=== PATIENT | male | born 1960 | race Caucasian/White ===

== ENCOUNTER 2020-11-03 19:02 | Inpatient (IN) | payer MEDICARE ==
[~2020-11-03] VITALS: Ht 180.3 cm; Wt 113.4 kg
[~2020-11-03 19:02] MED LIST: ASCORBIC ACID500 MG PO; DEPAKENE 2250 MG/5 M PO; DILANTIN 12525 MG/ML; DILANTIN100 MG PO; DULCOLAX STOOL100 MG PO; FUROSEMIDE20 MG PO; GABAPENTIN100 MG PO; KEPPRA500 MG PO; KEPPRA750 MG PO; KLOR-CON M2020 MEQ PO; LAMICTAL ODT50 MG PO; MELATONIN 3 MG1 TAB PO; MUCINEX600 MG PO; NAPROSYN500 MG PO; NORVASC5 MG PO; PRAVASTATIN SOD10 MG PO; PROTONIX40 MG PO; SYNTHROID50 MCG PO; VIC-FORTE CAPSUL1 MG PO; VITAMIN B-1100 M1 PO; VITAMIN B-12500 MCG PO; VITAMIN D-32000 UNI2 PO; VITAMIN E200 UNI1 PO; ZOLOFT50 MG PO
[2020-11-03 19:52] LABS: BASOPHILS 0.2 % (0-2); EOSINOPHILS 3.9 % (0-7); HEMATOCRIT 35.7 % (42.0-54.0); IMMATURE GRANULOCYTES 0.1 % (0-5); LYMPHOCYTE ABS# 4.55 10x3/uL (1.32-3.57); LYMPHOCYTES 53.5 % (15-50); MCH 31.7 pg (26.0-34.0); MCHC 33.6 g/dL (31.0-37.0); MCV 94.2 fL (80.0-100.0); MEAN PLATELET VOLUME 8.4 fL (7.4-10.4); MONOCYTES 6.7 % (2-11); NEUTROPHIL ABS# 3.03 10x3/uL (1.78-5.38); NEUTROPHILS 35.6 % (40-80); RBC 3.79 10x6/uL (4.20-6.10); RDW 13.1 % (11.5-14.5); WBC 8.5 10x3/uL (4.8-10.8)
[2020-11-03 19:58] LABS: APTT 27.9 SECONDS (22.8-39.4); INR 1.23 (0.85-1.17); PROTIME 14.3 SECONDS (11.6-15.0)
[2020-11-03 19:59] LABS: PLATELET COUNT 188 10x3/uL (130-400)
[2020-11-03 20:01] LABS: CALC OSMOLALITY 266 mosm/kg (275-300); CALCIUM 8.5 mg/dL (8.5-10.1); CARBON DIOXIDE 27.2 mmol/L (21.0-32.0); CHLORIDE - SERUM 98 mmol/L (98-107); CREATININE - SERUM 0.8 mg/dL (0.6-1.3); POTASSIUM - SERUM 3.3 mmol/L (3.5-5.1); SODIUM 133 mmol/L (136-145); UREA NITROGEN 7 mg/dL (7-18); eGFR NON AFRICAN AMERICAN > 90 mL/min (90-120)
[2020-11-03 20:02] LABS: GLUCOSE 158 mg/dL (74-106)
[2020-11-03 20:17] LABS: ALBUMIN 3.4 g/dL (3.4-5.0); ALKALINE PHOSPHATASE 190 U/L (30-120); ALT (SGPT) 18 U/L (10-68); BILIRUBIN - TOTAL 0.27 mg/dL (0.2-1.3); CREATINE KINASE 64 UL (21-232); MAGNESIUM - SERUM 1.7 mg/dL (1.8-2.4); THYROID STIMULATING HORMONE 2.85 uIU/mL (0.36-3.74)
[2020-11-03 20:20] LABS: TROPONIN-I < 0.017 ng/mL (0.000-0.060)
[2020-11-03 20:52] LABS: BILIRUBIN NEGATIVE (NEGATIVE); KETONE NEGATIVE (NEGATIVE); NITRITE NEGATIVE (NEGATIVE); UROBILINOGEN NORMAL mg/dL (< 2)
[2020-11-03 20:59] LABS: UDS - AMPHET NEGATIVE QUAL (NEGATIVE); UDS - BARB NEGATIVE QUAL (NEGATIVE); UDS - BENZO NEGATIVE QUAL (NEGATIVE); UDS - COCAINE NEGATIVE QUAL (NEGATIVE); UDS - OPIATE NEGATIVE QUAL (NEGATIVE); UDS - PCP NEGATIVE QUAL (NEGATIVE); UDS - THC NEGATIVE QUAL (NEGATIVE)
[2020-11-03 23:05] LABS: SARS-CoV-2 ANTIGEN NEGATIVE- SARS-COV-2 (NEGATIVE)
--- NOTE | 2020-11-03 23:52 | NUR ---
PT TO ROOM FROM ER, IMMEDIATLY STUMBLING AROUND THE ROOM WITH GARBLED SPEECH. ALERT TO SELF ONLY, STATES HE IS AT HOME. ASKED FOR A "SPIT CUP" REDIRECTED TO BED. DAVONTE ALARM IN PLACE. EDUCATED USE OF CALL LIGHT FOR ASSITANCE. PT UNABLE TO VERBALIZE UNDERSTANDING. FALL PRECAUTIONS IN PLACE.
[2020-11-03 23:55] VITALS: BP 123/64
[2020-11-04 03:19] VITALS: BP 123/64
[2020-11-04 04:32] VITALS: BP 107/77
--- NOTE | 2020-11-04 06:25 | NUR ---
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 STATES PT IS USUALLY A&O AND WAS DX WITH COVID-19 IN MARCH.
--- NOTE | 2020-11-04 07:15 | NUR ---
RECEIVE SHIFT REPORT. RESTING IN BED WITH EYES CLOSED. VIDEO MONITOR ON NURSE DESK. NO SIGNS OF DISTRESS PRESENT AT THIS TIME. WILL CONTINUE POC AND SAFETY PRECAUTIONS.
[2020-11-04 07:33] VITALS: BP 124/70
[2020-11-04 11:43] VITALS: BP 120/67
--- NOTE | 2020-11-04 17:34 | NUR ---
PATIENT YELLING " I WANT A DIP" AND GETTING UP. FALL RISK. TRY TO REORIENT PATIENT AND PUT HIM BACK IN BED. CLIMBS OUT REPEATEDLY. HALDOL GIVEN IV. PATIENT BECAME AGGRESSIVE. WILL CONTINUE SAFETY PRECAUTIONS.
--- NOTE | 2020-11-04 19:00 | NUR ---
REPORT RECEIVED, PT CARE ASSUMED. PT IN ENCLOSURE BED, WATER PROVIDED. NO S/S OF DISTRESS. REMAINS CONFUSED BUT PLESENT AT THIS TIME. DENIES NEEDS. WILL CPOC.
[2020-11-04 20:49] VITALS: BP 121/75
--- NOTE | 2020-11-05 00:15 | NUR ---
PTS SISTER IN LAW CALLED AND GIVEN UPDATE.
[2020-11-05 00:58] VITALS: BP 128/65
[2020-11-05 05:33] VITALS: BP 115/71
[2020-11-05 05:46] LABS: BASOPHILS 0.3 % (0-2); EOSINOPHILS 6.1 % (0-7); HEMATOCRIT 37.9 % (42.0-54.0); HEMOGLOBIN 12.4 g/dL (13.5-17.5); IMMATURE GRANULOCYTES 0.1 % (0-5); LYMPHOCYTE ABS# 4.71 10x3/uL (1.32-3.57); LYMPHOCYTES 62.1 % (15-50); MCH 31.2 pg (26.0-34.0); MCHC 32.7 g/dL (31.0-37.0); MCV 95.2 fL (80.0-100.0); MEAN PLATELET VOLUME 8.5 fL (7.4-10.4); MONOCYTES 7.1 % (2-11); NEUTROPHIL ABS# 1.85 10x3/uL (1.78-5.38); NEUTROPHILS 24.3 % (40-80); PLATELET COUNT 219 10x3/uL (130-400); RBC 3.98 10x6/uL (4.20-6.10); RDW 13.4 % (11.5-14.5); WBC 7.6 10x3/uL (4.8-10.8)
[2020-11-05 06:03] LABS: ALBUMIN 3.5 g/dL (3.4-5.0); ALKALINE PHOSPHATASE 175 U/L (30-120); ALT (SGPT) 16 U/L (10-68); BILIRUBIN - TOTAL 0.25 mg/dL (0.2-1.3); CALCIUM 8.5 mg/dL (8.5-10.1); CARBON DIOXIDE 28.1 mmol/L (21.0-32.0); CHLORIDE - SERUM 104 mmol/L (98-107); CREATININE - SERUM 0.7 mg/dL (0.6-1.3); POTASSIUM - SERUM 3.4 mmol/L (3.5-5.1); PROTEIN - SERUM 6.9 g/dL (6.4-8.2); SODIUM 138 mmol/L (136-145); UREA NITROGEN 7 mg/dL (7-18); eGFR NON AFRICAN AMERICAN > 90 mL/min (90-120)
[2020-11-05 06:04] LABS: CALC OSMOLALITY 273 mosm/kg (275-300); GLUCOSE 107 mg/dL (74-106)
--- NOTE | 2020-11-05 07:20 | NUR ---
RECIEVE REPORT. RESTING IN BED WITH EYES CLOSED. NO SIGNS OF DISTRESS. RESPIRATIONS EVEN AND REGULAR. CONTINUE PLAN OF CARE AND SAFEY PRECAUTIONS.
[2020-11-05 07:51] VITALS: BP 113/79
[2020-11-05 11:30] VITALS: BP 122/88
[2020-11-05 16:00] VITALS: BP 104/67
[2020-11-05 20:41] VITALS: BP 143/68
[2020-11-06 06:21] VITALS: BP 136/74
[2020-11-06 07:52] VITALS: BP 137/88
--- NOTE | 2020-11-06 08:00 | NUR ---
PT RECEIVED AWAKE AND ALERT ALBEIT CONFUSED. HE IS IN DAVONTE BED. ASSISTED UP TO CHAIR AND HELPED EAT BREAKFAST. MEDS GIVEN. CHAIR ALARM IN PLACE. SOME COMPLAINTS OF PAIN TO LEFT ABDOMEN.
[2020-11-06 13:10] VITALS: BP 126/78
--- NOTE | 2020-11-06 14:04 | NUR ---
PT YELLING WANTING TO GO TO BATHROOM. IN ROOM TO ASSIST AND HE IS GETTING FRUSTRATED. WHILE TRYING TO HOLD ON TO HIM HE SWUNG BACK AT ME AND COUGHT ME IN GUT WITH ELBOW. HELD ARMS AND PLACED BACK IN DAVONTE BED. CALL PLACED TO DR TAN AND ORDERS FOR IM HALDOL GIVEN.
[2020-11-06 16:12] VITALS: BP 124/76
[2020-11-06 19:01] VITALS: BP 104/61
--- NOTE | 2020-11-06 20:20 | NUR ---
REPORT RECEIVED, WILL CONT POC. PT ALERT AND CONFUSED, DELUSIONS & HALLUCINATIONS NOTED. PT COMBATIVE WHEN TRYING TO ASSIST WITH HS MEDS. NO S/S OF DISTRESS OBSERVED. RR EVEN & UNLABORED ON RA. BED LOCKED AND LOWERED, CL IN REACH. ASSESSMENT COMPLETED AT THIS TIME. WILL CONT TO MONITOR.
[2020-11-06 22:16] VITALS: BP 128/84
[2020-11-07 05:11] VITALS: BP 139/81
[2020-11-07 07:27] VITALS: BP 128/72
[2020-11-07 11:30] VITALS: BP 118/64
[2020-11-07 16:44] VITALS: BP 99/69
--- NOTE | 2020-11-07 20:20 | NUR ---
REPORT RECEIVED, WILL CONT POC. PT A&CONFUSED, UP IN BED. DELUSIONS AND HALLUCINATIONS NOTED. NO S/S OF DISTRESS OBSERVED. RR EVEN & UNLABORED ON RA. PT DENIES NEEDS AT THIS TIME. BED LOCKED AND LOWERED, CL IN REACH. ASSESSMENT COMPLETED AT THIS TIME. WILL CONT TO MONITOR.
[2020-11-07 23:11] VITALS: BP 125/72
[2020-11-08 05:24] VITALS: BP 122/74
[2020-11-08 08:00] VITALS: BP 132/57
[2020-11-08 12:00] VITALS: BP 129/62
[2020-11-08 15:00] VITALS: BP 129/58
--- NOTE | 2020-11-08 20:15 | NUR ---
REPORT RECEIVED, WILL CONT POC. PT A&CONFUSED WITH HALLUCINATIONS AND DELUSIONS. PT COMBATIVE WITH THIS NURSE TONIGHT. NO DISTRESS OBSERVED. RR EVEN & UNLABORED ON RA. DENIES NEEDS AT THIS TIME. BED LOCKED AND LOWERED. VIDEO MONITOR ON AT NURSES STATION. ASSESSMENT COMPLETED AT THIS TIME. WILL CONT TO MONITOR.
[2020-11-08 22:11] VITALS: BP 112/80
[2020-11-09 04:59] VITALS: BP 94/58
--- NOTE | 2020-11-09 07:31 | NUR ---
AM ROUNDING DONE WITH PATIENT IN DAVONTE BED IN DROPLET ISOLATION FOR COVID PUI. ON EP, K+ IS 3.4, WILL COVER PER PROTOCOL. ON ROOM AIR, NO IV ACCESS IS SEEN. PATIENT APPEARS TO BE SLEEPING, CHEST RISE AND FALL EVENELY.
[2020-11-09 08:42] VITALS: BP 111/78
[2020-11-09 11:18] VITALS: BP 115/71
--- NOTE | 2020-11-09 11:23 | NUR ---
CALLED DR. TAN OFFICE TO SEE WHO WAS CNC MANUFACTURING ENGINEER AND IF PCR IS NEEDED. AFTER 8 MIN. ON HOLD I WAS TOLD DR TAN WAS CNC MANUFACTURING ENGINEER. I ASKED THE ANSWERING SERVICE TO HAVE CALL ME.
--- NOTE | 2020-11-09 11:48 | NUR ---
CALL BACK FROM DR TAN TO SEE ABOUT PCR. I ASKED VILMA WITH CM TO CALL THE FACILITY TO SEE IF PCR NEEDS TO BE DONE. SHE WELL AND LET US KNOW.
--- NOTE | 2020-11-09 12:04 | NUR ---
MECHANICS HANDYMAN CALLED AFTER SPEAKING WITH [facility], PT DOES NOT HAVE TO HAVE A PCR COVID TEST BUT MUST BE OUT OF DAVONTE BED FOR 24 HOURS.
--- NOTE | 2020-11-09 13:09 | MORECARE ---
CASE MANAGEMENT DISCHARGE SUMMARY PATIENT: YUDITH LÓPEZ UNIT: [id number] ADM DATE: 11/03/20 AGE: 60 : 60 SEX: M ROOM/BED: D.2136 AUTHOR: LIZZ ROJAS PHYSICIAN: REFERRING PHYSICIAN: MAGNO BRANDON MD DATE OF SERVICE: 11/09/20 Discharge Plan Patient Name: YUDITH LÓPEZ [facility] [facility] 1960 Planned Disposition: Nursing Facility [facility] Cert Anticipated Discharge Date: Discharge Date: Expected LOS: Initial Reviewer: [email or web address] Initial Review Date: 11/09/2020 Generated: 11/09/20 2:09 pm External Providers External Provider: [facility] Next Contact Date: Service Request Date: Service Type: Resolution: Reviewer: Comments: Patient Name: YUDITH LÓPEZ Page [phone] at 1309 All edits/amendments must be made on the electronic document DICTATION DATE: 11/09/20 1309 NURSE ADVOCATE: ANGELY 11/09/20 1309 RPT#: [id number] MD DATE: STATUS: ADM IN [facility] [address] [place] [address] END OF REPORT
--- NOTE | 2020-11-09 13:16 | MORECARE ---
CASE MANAGEMENT DISCHARGE SUMMARY PATIENT: YUDITH LÓPEZ UNIT: [id number] ADM DATE: 11/03/20 AGE: 60 : 60 SEX: M ROOM/BED: D.2136 AUTHOR: BOB,DOC PHYSICIAN: REFERRING PHYSICIAN: MAGNO BRANDON MD DATE OF SERVICE: 11/09/20 Discharge Plan Patient Name: YUDITH LÓPEZ Facility: [facility]:[place] : 1960 Planned Disposition: Nursing Facility [facility] Cert Anticipated Discharge Date: Discharge Date: Expected LOS: Initial Reviewer: [email or web address] Initial Review Date: 11/09/2020 Generated: 11/09/20 2:16 pm Comments DCP- Discharge Planning Updated by [id number]: Winnie Muñoz on 11/09/20 12:[address] Patient Name: YUDITH LÓPEZ Admission Status: ER Accout number: [id number] Admission Date: 11-03-2020 : 1960 Admission Diagnosis:ALTERED MENTAL STATUS, UNSPECIFIED Attending: GEOFFREY Current LOS: 6 Anticipated DC Date: Planned Disposition: Nursing Facility [facility] Cert Primary Insurance: MEDICARE A & B Discharge Planning Comments: CM called patient's Lety CARRILLO to discuss discharge planning/needs. No answer. He lives at [facility]. I called and spoke with Bibi there and they will be anticipating his return. States they do not need a PCR, negative antigen is fine. States they test there twice a week. States he will need to be out of rikki bed for 24 hours prior to returning. I have called his primary nurse, Arpita, and informed her. CM will continue to follow and assist with discharge planning/needs. Piping Designer: Winnie Muñoz DCPIA - Discharge Planning Initial Assessment Updated by [id number]: Winnie Muñoz on 11/09/20 1:11 pm * Pharmacy [facility] * Preadmission Environment [facility] * Facility Name [facility] * Additional services required to return to the preadmission environment? No * Can the patient safely return to the preadmission environment? Yes Last DP export: 11/09/20 12:09 p Patient Name: YUDITH LÓPEZ Page [phone] at 1316 All edits/amendments must be made on the electronic document DICTATION DATE: 11/09/20 131 REPAIR ARMATURE WINDER: ANGELY 11/09/20 1316 RPT#: [id number] DC DATE: STATUS: ADM IN [facility] [address] [place] [address] END OF REPORT
[2020-11-09 15:51] VITALS: BP 112/76
--- NOTE | 2020-11-09 19:35 | NUR ---
REPORT RECEIVED, WILL CONT POC. A&C, LAYING IN BED. NO S/S OF DISTRESS OBSERVED. RR EVEN & UNLABORED ON RA. PT DENIES NEEDS AT THIS TIME. BED LOCKED AND LOWERED, CL IN REACH. ASSESSMENT COMPLETED AT THIS TIME. WILL CONT TO MONITOR.
[2020-11-09 20:14] VITALS: BP 125/68
[2020-11-10 05:17] VITALS: BP 120/70
[2020-11-10 06:26] LABS: HEMATOCRIT 39.9 % (42.0-54.0); HEMOGLOBIN 12.9 g/dL (13.5-17.5); LYMPHOCYTE ABS# 5.53 10x3/uL (1.32-3.57); MCH 31.5 pg (26.0-34.0); MCHC 32.3 g/dL (31.0-37.0); MCV 97.3 fL (80.0-100.0); MEAN PLATELET VOLUME 8.5 fL (7.4-10.4); NEUTROPHIL ABS# 3.14 10x3/uL (1.78-5.38); RDW 13.6 % (11.5-14.5); WBC 9.6 10x3/uL (4.8-10.8)
[2020-11-10 06:28] LABS: PLATELET COUNT 276 10x3/uL (130-400)
[2020-11-10 06:55] LABS: ALBUMIN 3.7 g/dL (3.4-5.0); ALKALINE PHOSPHATASE 164 U/L (30-120); ALT (SGPT) 21 U/L (10-68); BILIRUBIN - TOTAL 0.32 mg/dL (0.2-1.3); CALC OSMOLALITY 287 mosm/kg (275-300); CALCIUM 8.4 mg/dL (8.5-10.1); CARBON DIOXIDE 28.2 mmol/L (21.0-32.0); CHLORIDE - SERUM 107 mmol/L (98-107); CREATININE - SERUM 0.9 mg/dL (0.6-1.3); GLUCOSE 94 mg/dL (74-106); POTASSIUM - SERUM 3.7 mmol/L (3.5-5.1); PROTEIN - SERUM 6.8 g/dL (6.4-8.2); SODIUM 144 mmol/L (136-145); UREA NITROGEN 14 mg/dL (7-18); VALPROIC ACID (DEPAKOTE) 27.5 ug/mL (50.0-100.0); eGFR NON AFRICAN AMERICAN > 90 mL/min (90-120)
[2020-11-10 06:58] LABS: EOSINOPHILS 6 % (0-7); LYMPHOCYTES 44 % (15-50); NEUTROPHILS 50 % (40-80); PLATELET ESTIMATE NORMAL
--- NOTE | 2020-11-10 07:10 | NUR ---
LYING IN BED WITH EYES CLOSED, RESPIRATIONS SLOW/DEEP/EVEN, MAKING SNORING NOISES, ROUSES WITH VERBAL STIMULUS, T/R SELF AD MARION, INCONT OF B/B WITH USE OF INCONT PADS AND ADULT PULL UPS, PERICARE PROVIDED WITH DAILY BATH AND PRN, DENIES PAIN/OTHER DISCOMFORT AT THIS TIME, CALL LIGHT/PHONE/WATER WITHIN REACH, NO S/S OF ACUTE DISTRESS OBSERVED.
[2020-11-10 07:25] VITALS: BP 134/64
--- NOTE | 2020-11-10 08:00 | NUR ---
PT SITTING ON SIDE OF BED CONSUMING AM MEAL, BEHAVIOR APPROPRIATE AND NO ISSUES OBSERVED/REPORTED BY STAFF
[2020-11-10 08:09] VITALS: Ht 180.3 cm; Wt 113.4 kg
--- NOTE | 2020-11-10 10:00 | NUR ---
UP TO CHAIR AT BEDSIDE, AWAKE/ALERT, NO YELLING OUT OR ACTING OUT, ATTEMPTING TO CONVERSE WITH STAFF WHEN IN THE ROOM, VIDEO IN PLACE AND OPERATIONAL FOR SAFETY.
--- NOTE | 2020-11-10 12:00 | NUR ---
CONSUMING NOON MEAL WITH ASSIST FROM STAFF WHILE SITTING UP IN CHAIR AT BEDSIDE, NO ISSUES OBSERVED/REPORTED. VIDEO CONT TO BE USED TO ADDITIONAL SAFETY
--- NOTE | 2020-11-10 14:00 | NUR ---
CONT SITTING UP IN CHAIR AT BEDSIDE WATCHING WESTERNS ON TV, NO YELLING OUT OR ACTING OUT OBSERVED/REPORTED, VIDEO CONT IN PLACE FOR SAFETY.
[2020-11-10 15:28] VITALS: BP 108/72
--- NOTE | 2020-11-10 16:00 | NUR ---
DISCHARGE ORDERS RECEIVED, PT CONT UP IN CHAIR AT BEDSIDE, NO YELLING OUT/ACTING OUT, VIDEO CONT IN PLACE FOR SAFETY.
[2020-11-10] MEDS ORDERED: CHRONULAC30 ML PO (16:22)
--- NOTE | 2020-11-10 16:43 | NUR ---
CALLED REPORT TO JAYDE ALLEN AT [facility]
--- NOTE | 2020-11-10 16:56 | NUR ---
I CALLED TAIWO AT [facility] FOR TRANSPORT. SHE STATES THAT WITH [facility] THEY HAVE TO HAVE A FORM FAXED TO THEM AND THEN FAXED BACK. SHE IS GOING TO CALL THEM AND ASK FOR THE FORM. I RELAY THIS INFO TO NIDA HOUSE SUPERVISIOR.
--- NOTE | 2020-11-10 18:08 | NUR ---
DISCHARGED TO [facility] VIA STRETCHER ACCOMPANIED BY EMS ATTENDANTS AFTER PROVIDING WRITTEN/VERBAL DISCHARGE INSTRUCTIONS/EDUCATION TO WHICH PT UNABLE TO INDICATE UNDERSTANDING. NO S/S OF ACUTE DISTRESS OBSERVED.
--- NOTE | 2020-11-14 01:38 | MORECARE ---
CASE MANAGEMENT DISCHARGE SUMMARY PATIENT: YUDITH LÓPEZ UNIT: [id number] ADM DATE: 11/03/20 AGE: 60 : 60 SEX: M ROOM/BED: D.9720 AUTHOR: BOB,DOC PHYSICIAN: REFERRING PHYSICIAN: MAGNO BRANDON MD DATE OF SERVICE: 11/14/20 Discharge Plan Patient Name: YUDITH LÓPEZ Facility: [facility]:[place] : 1960 Planned Disposition: Nursing Facility [facility] Cert Anticipated Discharge Date: Discharge Date: 11/10/2020 Expected LOS: Initial Reviewer: [id number] Initial Review Date: 11/09/2020 Generated: 11/14/20 2:38 am Comments DCP- Discharge Planning Updated by [email or web address]: Radha Don on 11/14/20 12:[address] CM notified [facility] of discharge and faxed updates. D/ C IMM completed Ambulance transfer back DCP- Discharge Planning Updated by [email or web address]: Winnie Muñoz on 11/09/20 12:[address] Patient Name: YUDITH LÓPEZ Admission Status: ER Accout number: [id number] Admission Date: 11-03-2020 : 1960 Admission Diagnosis:ALTERED MENTAL STATUS, UNSPECIFIED Attending: GEOFFREY Current LOS: 6 Anticipated DC Date: Planned Disposition: Nursing Facility [facility] Cert Primary Insurance: MEDICARE A & B Discharge Planning Comments: CM called patient's GERARDO Lety to discuss discharge planning/needs. No answer. He lives at [facility]. I called and spoke with Bibi there and they will be anticipating his return. States they do not need a PCR, negative antigen is fine. States they test there twice a week. States he will need to be out of rikki bed for 24 hours prior to returning. I have called his primary nurse, Arpita, and informed her. CM will continue to follow and assist with discharge planning/needs. Facilitator: Winnie Muñoz DCPIA - Discharge Planning Initial Assessment Updated by [email or web address]: Winnie Muñoz on 11/09/20 1:11 pm * Pharmacy [facility] * Preadmission Environment Skilled Nursing Half-Way * Facility Name [facility] * Additional services required to return to the preadmission environment? No * Can the patient safely return to the preadmission environment? Yes Coverage Notice Reviewer: [id number] Amber Don Notice Issued Date-Time: 11/10/2020 17:15 Notice Type: IM Discharge Notice Notice Delivered To: Patient Relationship to Patient: Snow Removal/Plowing Name: Delivery Method: HAND - Hand Delivered Kelsey Days: Prior Verbal Notification: Recipient Understood Notice: Yes Recipient Signature: Med Rec Note Co-signed by Attending: Coverage Notice Comment: Last DP export: 11/09/20 12:16 p Patient Name: YUDITH LÓPEZ Page [phone] at 0138 All edits/amendments must be made on the electronic document DICTATION DATE: 11/14/20137 ARBORIST REPRESENTATIVE: ANGELY 11/14/20137 RPT#: [id number] DC DATE:11/10/20 STATUS: DIS IN [facility] [address] [place] [address] END OF REPORT
[2020-11-16] MEDS ORDERED: CHRONULAC30 ML PO (05:32)
== END 2020-11-10 19:14 | DRG 433 ==
LOC: D.ER 19:02 → D.M2 21:41 → D.EDHOLD 21:41 → D.M2 22:55
PROVIDERS: Family Medicine; Legal Medicine; ADMIT Emergency Medicine; ATTEND Emergency Medicine
DX: K70.10 Alcoholic hepatitis without ascites (principal); E87.1 Hypo-osmolality and hyponatremia; E88.49 Other mitochondrial metabolism disorders; K72.90 Hepatic failure, unspecified without coma; E87.6 Hypokalemia; I10 Essential (primary) hypertension; F31.9 Bipolar disorder, unspecified; F10.21 Alcohol dependence, in remission; Z86.73 Personal history of transient ischemic attack (TIA), and cerebral infarction without residual deficits; Z72.0 Tobacco use

== ENCOUNTER 2020-11-16 11:36 | Inpatient (IN) | payer MEDICARE ==
[~2020-11-16] VITALS: Ht 180.3 cm; Wt 79.4 kg
[~2020-11-16 11:36] MED LIST changes: +CHRONULAC30 ML PO
[2020-11-16 12:26] LABS: HEMOGLOBIN 11.7 g/dL (13.5-17.5); LYMPHOCYTES 43.9 % (15-50); MCH 31.5 pg (26.0-34.0); MCHC 32.5 g/dL (31.0-37.0); MEAN PLATELET VOLUME 8.8 fL (7.4-10.4); NEUTROPHILS 52.4 % (40-80); RBC 3.71 10x6/uL (4.20-6.10); RDW 13.3 % (11.5-14.5); WBC 8.9 10x3/uL (4.8-10.8)
[2020-11-16 12:27] LABS: PLATELET COUNT 179 10x3/uL (130-400)
[2020-11-16 12:48] LABS: ALBUMIN 3.6 g/dL (3.4-5.0); ALKALINE PHOSPHATASE 178 U/L (30-120); ALT (SGPT) 21 U/L (10-68); BILIRUBIN - TOTAL 0.45 mg/dL (0.2-1.3); CALC OSMOLALITY 283 mosm/kg (275-300); CALCIUM 8.1 mg/dL (8.5-10.1); CARBON DIOXIDE 26.6 mmol/L (21.0-32.0); CHLORIDE - SERUM 106 mmol/L (98-107); CREATININE - SERUM 0.8 mg/dL (0.6-1.3); GLUCOSE 102 mg/dL (74-106); MAGNESIUM - SERUM 1.8 mg/dL (1.8-2.4); PHENYTOIN (DILANTIN) 29.2 ug/mL (10.0-20.0); POTASSIUM - SERUM 3.4 mmol/L (3.5-5.1); PROTEIN - SERUM 6.6 g/dL (6.4-8.2); SODIUM 142 mmol/L (136-145); THYROID STIMULATING HORMONE 3.14 uIU/mL (0.36-3.74); UREA NITROGEN 14 mg/dL (7-18); VALPROIC ACID (DEPAKOTE) 35.2 ug/mL (50.0-100.0); eGFR NON AFRICAN AMERICAN > 90 mL/min (90-120)
[2020-11-16 13:10] LABS: BILIRUBIN NEGATIVE (NEGATIVE); KETONE SMALL mg/dL (NEGATIVE); NITRITE NEGATIVE (NEGATIVE); UROBILINOGEN NORMAL mg/dL (< 2)
[2020-11-16 13:29] LABS: SQUAMOUS EPITHELIAL RARE HPF (0-4); WHITE CELLS - URINE 25-50 HPF (0-1)
[2020-11-16 13:30] LABS: BACTERIA MODERATE HPF (NONE SEEN)
--- NOTE | 2020-11-16 15:02 | NUR ---
patient awake and alert, confused at times. patient reminded several times not to get up out of bed. patient assisted to the chair and back to bed to try and keep comfortable. patient has taken off all leads and bp cuff. call mackay in reach, side rails up x 2, bed in low position.
--- NOTE | 2020-11-16 18:42 | NUR ---
PATIENT FOUND UP IN THE HALLWAY, DESPITE CALL BLEVINS BEING CLOSE AND BED IN LOW POSITION AND SIDE RAILS UP X 2 AND REMINDING PATIENT CONSTANTLY NOT TO GET UP UNASSISTED. PATIENT VERY UNSTEADY ON HIS FEET AND IS A TWO PERSON MAX ASSIST TO GET UP. PATIENT WAS ASSISTED IN A CONTROLLED MANNER TO THE FLOOR IN THE HALLWAY AND ASSISTED BACK UP TO WHEELCHAIR BY 3 STAFF MEMBERS AND BACK TO HIS BED. CALL BLEVINS IN REACH, SIDE RAILS UP X 2, BED IN LOW POSITION. PATIENT REMINDED AGAIN TO NOT GET UP WITHOUT ASSISTANCE. PATIENT PULLED OUT IV TO RIGHT UPPER ARM, BLEEDING CONTROLLED, TIP INTACT.
--- NOTE | 2020-11-16 18:48 | NUR ---
NO INJURIES NOTED FROM CONTROLLED ASSISTANCE TO THE GROUND EARLIER.
[2020-11-17 03:24] VITALS: BP 125/76; BMI 24.4
[2020-11-17] MEDS ORDERED: KEPPRA750 MG PO (05:35)
[2020-11-17] MEDS ORDERED: TRIPLE ANTIBI28.4 GM TOPICAL (05:52)
[2020-11-17] MEDS ORDERED: VALPROIC ACID PO (05:58)
--- NOTE | 2020-11-17 07:20 | NUR ---
REC'D IN BED RESTING WITH EYES CLOSED EASILY TO AROUSED WHEN NAME IS CALLED. RESP EVEN AND UNLABORED WITH NO DISTRESS NOTED. CAN EXPRESS NEEDS AND WANTS. NO C/O NOTED OR VOICED. ASSESSMENT COMPLETED. C/L IN REACH AT BEDSIDE.
[2020-11-17 07:40] LABS: BASOPHILS 0.2 % (0-2); EOSINOPHILS 2.7 % (0-7); HEMATOCRIT 34.9 % (42.0-54.0); HEMOGLOBIN 11.3 g/dL (13.5-17.5); IMMATURE GRANULOCYTES 0.2 % (0-5); LYMPHOCYTE ABS# 4.34 10x3/uL (1.32-3.57); LYMPHOCYTES 43.3 % (15-50); MCH 31.7 pg (26.0-34.0); MCHC 32.4 g/dL (31.0-37.0); MCV 97.8 fL (80.0-100.0); MEAN PLATELET VOLUME 9.2 fL (7.4-10.4); MONOCYTES 7.4 % (2-11); NEUTROPHIL ABS# 4.64 10x3/uL (1.78-5.38); NEUTROPHILS 46.2 % (40-80); PLATELET COUNT 160 10x3/uL (130-400); RBC 3.57 10x6/uL (4.20-6.10); RDW 13.4 % (11.5-14.5)
[2020-11-17 07:51] LABS: CALC OSMOLALITY 281 mosm/kg (275-300); CARBON DIOXIDE 26.7 mmol/L (21.0-32.0); CHLORIDE - SERUM 107 mmol/L (98-107); CREATININE - SERUM 0.8 mg/dL (0.6-1.3); GLUCOSE 88 mg/dL (74-106); POTASSIUM - SERUM 3.4 mmol/L (3.5-5.1); SODIUM 142 mmol/L (136-145); UREA NITROGEN 13 mg/dL (7-18); eGFR NON AFRICAN AMERICAN > 90 mL/min (90-120)
[2020-11-17 08:33] VITALS: BP 132/69
[2020-11-17 13:40] VITALS: Ht 180.3 cm; Wt 79.4 kg
[2020-11-17 14:00] VITALS: BP 136/60
--- NOTE | 2020-11-17 16:54 | NUR ---
PLACED IN DAVONTE BED AT THIS TIME D/T PT CONTINUOUSLY GET UP UNASSISTED AND IS A FALL RISK. C/L IN REACH AT BEDSIDE.
[2020-11-17 17:07] VITALS: BP 133/90
--- NOTE | 2020-11-17 17:20 | NUR ---
I have reviewed this patient and I concur with the Shift Assessment completed by the Licensed Practical Nurse today this shift.
[2020-11-17 20:21] VITALS: BP 122/85
[2020-11-18 00:22] VITALS: BP 140/82
[2020-11-18 05:26] VITALS: BP 123/89
[2020-11-18 08:10] VITALS: BP 139/83
--- NOTE | 2020-11-18 09:25 | NUR ---
ALERT AND ORIENTED TO SELF ONLY. ASSESSMENT COMPLETE. DAVONTE BED ZIPPED. CALL BLEVINS IN REACH. DENIES NEEDS. WILL CONTINUE TO MONITOR.
[2020-11-18 11:59] VITALS: BP 127/76
--- NOTE | 2020-11-18 13:19 | NUR ---
PT IN DAVONTE BED UPON ENTERING. YELLING ABOUT WANTING TO EAT. EMPTIED URINAL AND AIDE ASSISTED IN SETTING UP LUNCH TRAY. PT CONTENT WITH THIS. WILL CONTINUE POC.
--- NOTE | 2020-11-18 14:42 | NUR ---
PT UPRIGHT IN DAVONTE BED. ADMINISTERED MEDICATION, NO DIFFIUCLTIES. RESTING COMFORTABLY. DENIES ANY NEEDS AT THIS TIME. WILL CONTINUE POC.
--- NOTE | 2020-11-18 17:01 | NUR ---
NO IV FLUIDS HUNG D/T PT NOT HAVING IV AND REFUSING TO LET STAFF START ANOTHER ONE.
[2020-11-18 17:21] VITALS: BP 131/85
[2020-11-18 21:51] VITALS: BP 152/93
[2020-11-19 01:18] VITALS: BP 137/82
[2020-11-19 05:56] VITALS: BP 142/70
--- NOTE | 2020-11-19 07:49 | NUR ---
PT IN BED WITH EYES CLOSED UPON ENTERING. NO S/S OF DISTRESS NOTED AT THIS TIME. BED IN LOWEST POSITION, BED RAILS X2, CALL LIGHT WITHIN REACH. WILL CONTINUE POC.
[2020-11-19 08:39] VITALS: BP 138/77
--- NOTE | 2020-11-19 10:24 | NUR ---
PATIENT WITHOUT DISTRESS. DOOR OPEN
--- NOTE | 2020-11-19 11:00 | NUR ---
PT IN DAVONTE BED. THE ZIPPER ON ONE OF THE ENTRANCES WAS LEFT OPEN, PT GOT OUT AND WAS WALKING AROUND ROOM. BRADDER FOUND HIM AND PLACED HIM BACK IN BED. ZIPPER CLOSED PROPERLY. PATIENT RESTING COMFORTABLT.
--- NOTE | 2020-11-19 12:05 | NUR ---
PT UPRIGHT IN DAVONTE BED. REFUSING TO TAKE MEDICATION UNTIL HE CAN COME OUT OF THE DAVONTE BED. ATTEMPTED TO EXPLAIN TO PT REASONING FOR THE DAVONTE. STILL REFUSING. WILL CONTINUE POC.
[2020-11-19 13:31] VITALS: BP 146/56
--- NOTE | 2020-11-19 15:23 | NUR ---
ADMINISTERED MEDICATIONS, NO DIFFICULTIES. PT AGREEABLE AT THIS TIME. RESPONDS WELL TO DIET COKE. RESTING IN BED. DENIES ANY NEEDS AT THIS TIME. WILL CONTINUE POC.
--- NOTE | 2020-11-19 17:32 | NUR ---
BABAR LÓPEZ [phone] THANIA SKY [phone]
[2020-11-19 20:23] LABS: CALC OSMOLALITY 268 mosm/kg (275-300); CALCIUM 8.3 mg/dL (8.5-10.1); CARBON DIOXIDE 27.2 mmol/L (21.0-32.0); CHLORIDE - SERUM 101 mmol/L (98-107); CREATININE - SERUM 0.8 mg/dL (0.6-1.3); GLUCOSE 92 mg/dL (74-106); POTASSIUM - SERUM 3.7 mmol/L (3.5-5.1); SODIUM 135 mmol/L (136-145); UREA NITROGEN 10 mg/dL (7-18); eGFR NON AFRICAN AMERICAN > 90 mL/min (90-120)
[2020-11-19 20:51] VITALS: BP 141/88
[2020-11-20 00:47] VITALS: BP 112/73
[2020-11-20 06:36] VITALS: BP 128/84
[2020-11-20 08:34] VITALS: BP 132/77
[2020-11-20 12:55] LABS: BASOPHILS 0.2 % (0-2); EOSINOPHILS 3.5 % (0-7); HEMATOCRIT 38.7 % (42.0-54.0); IMMATURE GRANULOCYTES 0.2 % (0-5); LYMPHOCYTE ABS# 4.63 10x3/uL (1.32-3.57); LYMPHOCYTES 48.1 % (15-50); MCH 31.8 pg (26.0-34.0); MCHC 33.6 g/dL (31.0-37.0); MCV 94.6 fL (80.0-100.0); MEAN PLATELET VOLUME 9.1 fL (7.4-10.4); MONOCYTES 6.1 % (2-11); NEUTROPHIL ABS# 4.03 10x3/uL (1.78-5.38); NEUTROPHILS 41.9 % (40-80); RBC 4.09 10x6/uL (4.20-6.10); RDW 13.2 % (11.5-14.5); WBC 9.6 10x3/uL (4.8-10.8)
[2020-11-20 13:00] LABS: PLATELET COUNT 212 10x3/uL (130-400)
[2020-11-20 15:55] VITALS: BP 120/67
[2020-11-20 20:00] VITALS: BP 125/67
--- NOTE | 2020-11-20 22:38 | NUR ---
PT SITTING UP IN BED. NO PAIN NOTED AT THIS TIME. TOOK MEDS WELL WITHOUT DIFFICULTY. CALL LIGHT IN REACH. DAVONTE STILL UP.
[2020-11-21 04:00] VITALS: BP 107/79
--- NOTE | 2020-11-21 06:05 | NUR ---
PT YELLED OUT DURING SHIFT. NURSE TALKED TO PT AND REORIENTED PT. PT THEN SLEPT THROUGHOUT THE SHIFT. NO COMPLAINTS OF PAIN NOR DISTRESS NOTED. CALL LIGHT IN REACH. TOOK ALL MEDICATIONS WELL.
[2020-11-21 10:39] VITALS: BP 137/86
[2020-11-21 14:14] VITALS: BP 107/71
[2020-11-21 18:28] VITALS: BP 112/73
[2020-11-21 20:00] VITALS: BP 130/82
--- NOTE | 2020-11-21 21:56 | NUR ---
PT RESTING IN BED WITH DAVONTE IN PLACE. NO COMPLAINTS OF PAIN AT THIS TIME. CALL LIGHT IN REACH. BED IN LOWEST POSITION.
[2020-11-22] VITALS: BP 131/70
[2020-11-22 04:00] VITALS: BP 121/75
[2020-11-22 12:31] VITALS: BP 122/69
--- NOTE | 2020-11-22 15:41 | NUR ---
OT NOTE: PT COMPLETED SIT TO STAND WITH SBA. PT COMPLETED SITTING BALANCE WITH SBA. PT COMPLETED BUE AROM EXERCISES WHILE SEATED. PT REQUIRED MAX VERBAL CUES FOR INCREASED SAFETY. PT IS CONFUSED AND HAS DIFFICULTY FOLLOWING STEPS. 120-145 THANK YOU,PAO BIRD
--- NOTE | 2020-11-22 16:33 | MORECARE ---
CASE MANAGEMENT DISCHARGE SUMMARY PATIENT: YUDITH LÓPEZ UNIT: [id number] ADM DATE: 11/16/20 AGE: 60 : 60 SEX: M ROOM/BED: D.2211 AUTHOR: LIZZ ROJAS PHYSICIAN: REFERRING PHYSICIAN: YANI TAN MD DATE OF SERVICE: 11/22/20 Discharge Plan Patient Name: YUDITH LÓPEZ Facility: [facility]:[place] : 1960 Planned Disposition: Arboriculture Teacher Acute Care Facility Anticipated Discharge Date: Discharge Date: Expected LOS: Initial Reviewer: [id number] Initial Review Date: 11/16/2020 Generated: 11/22/20 5:32 pm Comments DCP- Discharge Planning Updated by [email or web address]: Oralia Almanzar on 11/22/20 3:[address] PATIENT IS A CORRECTION RESIDENT AT [facility] HE WILL DISCHARGING BACK TO A SKILLED BED THEY WILL TRANSPORTING HIM IMM SERVED AND COPY GIVEN Coverage Notice Reviewer: [id number] - Oralia Almanzar Notice Issued Date-Time: 11/22/2020 15:48 Notice Type: IM Discharge Notice Notice Delivered To: Patient Relationship to Patient: Rigger Name: Delivery Method: HAND - Hand Delivered Kelsey Days: Prior Verbal Notification: Recipient Understood Notice: Yes Recipient Signature: Yes Med Rec Note Co-signed by Attending: Coverage Notice Comment: IMM Patient Name: YUDITH LÓPEZ Page [phone] at 1633 All edits/amendments must be made on the electronic document DICTATION DATE: 11/22/20 1633 MARINE OPERATIONS COORDINATOR: ANGELY 11/22/20 1633 RPT#: [id number] DC DATE: STATUS: ADM IN [facility] [address] [place] [address] END OF REPORT
--- NOTE | 2020-11-22 16:42 | MORECARE ---
CASE MANAGEMENT DISCHARGE SUMMARY PATIENT: YUDITH LÓPEZ UNIT: [id number] ADM DATE: 11/16/20 AGE: 60 : 60 SEX: M ROOM/BED: D.2211 AUTHOR: LIZZ ROJAS PHYSICIAN: REFERRING PHYSICIAN: YANI TAN MD DATE OF SERVICE: 11/22/20 Discharge Plan Patient Name: YUDITH LÓPEZ Facility: [facility]:[place] : 1960 Planned Disposition: Collateral Clerk Acute Care Facility Anticipated Discharge Date: Discharge Date: Expected LOS: Initial Reviewer: [email or web address] Initial Review Date: 11/16/2020 Generated: 11/22/20 5:42 pm Comments DCP- Discharge Planning Updated by [email or web address]: Oralia Almanzar on 11/22/20 3:[address] PATIENT IS A [place] [facility] WILL DISCHARGING BACK TO A SKILLED BED THEY WILL TRANSPORTING HIM IMM SERVED AND COPY GIVEN External Providers External Provider: [facility] Next Contact Date: Service Request Date: Service Type: Resolution: Reviewer: Comments: Coverage Notice Reviewer: [id number] - Oralia Almanzar Notice Issued Date-Time: 11/22/2020 15:48 Notice Type: IM Discharge Notice Notice Delivered To: Patient Relationship to Patient: Nurse Administrator Name: Delivery Method: HAND - Hand Delivered Kelsey Days: Prior Verbal Notification: Recipient Understood Notice: Yes Recipient Signature: Yes Med Rec Note Co-signed by Attending: Coverage Notice Comment: IMM Last DP export: 11/22/20 3:33 pm Patient Name: YUDITH LÓPEZ Page [phone] at 1642 All edits/amendments must be made on the electronic document DICTATION DATE: 11/22/201641 SENIOR QUALITY ASSURANCE ANALYST: ANGELY 11/22/201641 RPT#: [id number] DC DATE: STATUS: ADM IN [facility] [address] [place] [address] END OF REPORT
--- NOTE | 2020-11-22 16:45 | NUR ---
OT NOTE: BED MOB AND EOB SITTING ON SIDE OF DAVONTE BED WITH MIN ASSIST; PT ABLE TO WASH HANDS AND FACE WITH CLOTH; ATTEMPTED TO DAINA SOCKS WHILE SITTING ON EOB, HOWEVER, UNSAFE WITH THIS. PT REMAINS CONFUSED WITH POOR SAFETY AWARENESS. ABLE TO TRANSFER WITH MIN ASSIST. RECOMMEND USE OF WALKER AND MIN ASSIST FOR IN ROOM AMBULATION. PRITI LEYVA, OTR/L [phone]
--- NOTE | 2020-11-23 10:39 | MORECARE ---
CASE MANAGEMENT DISCHARGE SUMMARY PATIENT: YUDITH LÓPEZ UNIT: [id number] ADM DATE: 11/16/20 AGE: 60 : 60 SEX: M ROOM/BED: D.2211 AUTHOR: LIZZ ROJAS PHYSICIAN: REFERRING PHYSICIAN: YANI TAN MD DATE OF SERVICE: 11/23/20 Discharge Plan Patient Name: YUDITH LÓPEZ Facility: [facility]:[place] : 1960 Planned Disposition: Television Service Engineer Acute Care Facility Anticipated Discharge Date: Discharge Date: 11/22/2020 Expected LOS: Initial Reviewer: [id number] Initial Review Date: 11/16/2020 Generated: 11/23/20 11:38 am Comments DCP- Discharge Planning Updated by [email or web address]: Oralia Almanzar on 11/22/20 3:[address] PATIENT IS [place] [facility] [place] WILL DISCHARGING BACK TO A SKILLED BED THEY WILL TRANSPORTING HIM IMM SERVED AND COPY GIVEN Coverage Notice Reviewer: [id number] - Oralia Almanzar Notice Issued Date-Time: 11/22/2020 15:48 Notice Type: IM Discharge Notice Notice Delivered To: Patient Relationship to Patient: Underwear Hemmer Name: Delivery Method: HAND - Hand Delivered Kelsey Days: Prior Verbal Notification: Recipient Understood Notice: Yes Recipient Signature: Yes Med Rec Note Co-signed by Attending: Coverage Notice Comment: IMM Last DP export: 11/22/20 3:42 pm Patient Name: YUDITH LÓPEZ Page [phone] at 1039 All edits/amendments must be made on the electronic document DICTATION DATE: 11/23/20 1038 JUNIOR WEB DEVELOPER: DM 11/23/20 1038 RPT#: [id number] DC DATE:11/22/20 STATUS: DIS IN [place] [place] [id number] [place] [address] END OF REPORT
== END 2020-11-22 18:00 | DRG 689 ==
LOC: D.ER 11:36 → D.EDHOLD 14:39 → D.MS 14:39
PROVIDERS: Emergency Medicine; ADMIT Legal Medicine; ATTEND Legal Medicine
DX: N39.0 Urinary tract infection, site not specified (principal); G93.41 Metabolic encephalopathy; E72.20 Disorder of urea cycle metabolism, unspecified; T42.0X5A Adverse effect of hydantoin derivatives, initial encounter; E03.9 Hypothyroidism, unspecified; E78.5 Hyperlipidemia, unspecified; G89.29 Other chronic pain; F31.9 Bipolar disorder, unspecified; Z86.73 Personal history of transient ischemic attack (TIA), and cerebral infarction without residual deficits

== ENCOUNTER 2020-12-01 13:11 | Inpatient (IN) | payer MEDICARE ==
[~2020-12-01] VITALS: Ht 180.3 cm; Wt 75.3 kg
[~2020-12-01 13:11] MED LIST changes: +TRIPLE ANTIBI28.4 GM TOPICAL; +VALPROIC ACID PO
[2020-12-01 13:30] VITALS: BP 126/75
--- NOTE | 2020-12-01 13:50 | NUR ---
LAB DRAWN WITH IV START AND SENT TO LAB PER PROTOCOL
[2020-12-01 13:51] LABS: BASOPHILS 0.2 % (0-2); EOSINOPHILS 1.7 % (0-7); HEMATOCRIT 38.3 % (42.0-54.0); HEMOGLOBIN 12.7 g/dL (13.5-17.5); IMMATURE GRANULOCYTES 0.1 % (0-5); LYMPHOCYTE ABS# 3.45 10x3/uL (1.32-3.57); LYMPHOCYTES 42.9 % (15-50); MCH 31.9 pg (26.0-34.0); MCHC 33.2 g/dL (31.0-37.0); MCV 96.2 fL (80.0-100.0); MEAN PLATELET VOLUME 8.6 fL (7.4-10.4); MONOCYTES 5.5 % (2-11); NEUTROPHIL ABS# 3.99 10x3/uL (1.78-5.38); NEUTROPHILS 49.6 % (40-80); PLATELET COUNT 229 10x3/uL (130-400); RBC 3.98 10x6/uL (4.20-6.10); RDW 13.8 % (11.5-14.5); WBC 8.1 10x3/uL (4.8-10.8)
[2020-12-01 14:10] LABS: CALC OSMOLALITY 277 mosm/kg (275-300); CALCIUM 8.5 mg/dL (8.5-10.1); CARBON DIOXIDE 28.8 mmol/L (21.0-32.0); CHLORIDE - SERUM 104 mmol/L (98-107); CREATININE - SERUM 0.8 mg/dL (0.6-1.3); GLUCOSE 107 mg/dL (74-106); POTASSIUM - SERUM 3.7 mmol/L (3.5-5.1); SODIUM 141 mmol/L (136-145); UREA NITROGEN 5 mg/dL (7-18); eGFR NON AFRICAN AMERICAN > 90 mL/min (90-120)
[2020-12-01 14:20] LABS: APTT 23.7 SECONDS (22.8-39.4); INR 1.16 (0.85-1.17); PROTIME 13.7 SECONDS (11.6-15.0)
--- NOTE | 2020-12-01 14:57 | NUR ---
PATIENT WAS BEING ASSISTED BY DORA MURRAY AND FELL OVER THE BED RAIL, HITTING FACE ON COUNTER IN ROOM. BRIGHT RED BLOOD COMING FROM NOSE, DEFORMITY TO NOSE, REDNESS AND SWELLING TO FACE.
[2020-12-01 15:00] LABS: ALBUMIN 4.1 g/dL (3.4-5.0); ALKALINE PHOSPHATASE 218 U/L (30-120); ALT (SGPT) 23 U/L (10-68); CKMB 0.7 U/L (0.0-3.6); CREATINE KINASE 145 UL (21-232); PROTEIN - SERUM 7.4 g/dL (6.4-8.2); THYROID STIMULATING HORMONE 3.67 uIU/mL (0.36-3.74); TROPONIN-I < 0.017 ng/mL (0.000-0.060)
--- NOTE | 2020-12-01 15:06 | NUR ---
HOSPITALIST MID LEVEL NOTIFIED OF EVENT
--- NOTE | 2020-12-01 15:10 | NUR ---
DR WEI AND BOBY CHONG APRN AWARE OF INCIDENT, VERBAL ORDERS FOR CT HEAD NECK AND FACE
--- NOTE | 2020-12-01 15:20 | NUR ---
PATIENT TAKEN TO CT
--- NOTE | 2020-12-01 15:28 | NUR ---
PATIENT RETURNED FROM CT
--- NOTE | 2020-12-01 15:32 | NUR ---
PATIENT SPITTING SNUFF FROM MCC INTO CLEAN URINAL. REORIENTED TO SITUATION. MONITORING IN LINE OF SIGHT. RESTING IN BED AT THIS TIME.
--- NOTE | 2020-12-01 15:33 | NUR ---
AWAITING CT RESULTS.
[2020-12-01 16:00] VITALS: BP 121/81
[2020-12-01 16:31] VITALS: BP 142/80
[2020-12-01 16:54] LABS: UDS - AMPHET NEGATIVE QUAL (NEGATIVE); UDS - BARB NEGATIVE QUAL (NEGATIVE); UDS - BENZO NEGATIVE QUAL (NEGATIVE); UDS - COCAINE NEGATIVE QUAL (NEGATIVE); UDS - OPIATE NEGATIVE QUAL (NEGATIVE); UDS - PCP NEGATIVE QUAL (NEGATIVE); UDS - THC NEGATIVE QUAL (NEGATIVE)
[2020-12-01 16:55] LABS: NITRITE NEGATIVE (NEGATIVE)
--- NOTE | 2020-12-01 16:58 | NUR ---
PATIENT ASSISTED TO POSITION OF COMFORT, CONTINUES TO GET OUT OF BED. REORIENTED TO SITUATIONS. CARE PLAN EXPLAINED. GIVEN WARM BLANKET AND ICE WATER. PATIENT BEGAN SEXUALLY INAPPROPRIATE BEHAVIOR, INFORMED THAT WILL NOT BE TOLERATED. WILL MONITOR PATIENT.
[2020-12-01 17:05] LABS: BILIRUBIN NEGATIVE (NEGATIVE); KETONE NEGATIVE (NEGATIVE); UROBILINOGEN NORMAL mg/dL (< 2)
--- NOTE | 2020-12-01 17:17 | NUR ---
PATIENT CONTINUES TO TRY TO EXIT BED. REORIENTING PATIENT. ASSISTED TO POSITION OF COMFORT.
--- NOTE | 2020-12-01 17:37 | NUR ---
PATIENT RESTING IN BED
--- NOTE | 2020-12-01 17:59 | NUR ---
PATIENT ASSISTED TO POSITION OF COMFORT.
--- NOTE | 2020-12-01 18:52 | NUR ---
PATIENT ASSISTED TO POSITION OF COMFORT
[2020-12-01 19:10] VITALS: BP 116/68
[2020-12-01 19:45] LABS: PHENYTOIN (DILANTIN) 36.6 ug/mL (10.0-20.0); VALPROIC ACID (DEPAKOTE) 20.7 ug/mL (50.0-100.0)
[2020-12-01 21:47] VITALS: BP 128/73
--- NOTE | 2020-12-02 01:07 | NUR ---
PT ARRIVED TO FLOOR AROUND 2230. PT WAS RESTING IN BED AT THE TIME. NO COMPLAINTS OF PAIN NOR DISTRESS NOTED. VITALS SIGNS WNL. ALERT TO SELF AND PLACE. WAS ABLE TO ANSWER SOME OF THE ADMISSION ASSESSMENT QUESTIONS PROPERLY. PT NOW SITTING UP IN BED, ASKING FOR PANTS AND ATTEMPTING TO UNZIP DAVONTE. PT WAS REORIENTED BY NURSE.
[2020-12-02 04:57] VITALS: BP 150/82
--- NOTE | 2020-12-02 06:55 | NUR ---
pt had tobacco with him. hospital staff passed it to me. nurse locked up tobacco in the cassette. notified day shift nurse.
--- NOTE | 2020-12-02 08:00 | NUR ---
PT REMAINS IN DAVONTE BED MONITORED CLOSELY.
--- NOTE | 2020-12-02 10:00 | NUR ---
PATIENT SITTING UP IN DAVONTE BED MONITORED FREQUENTLY.
[2020-12-02 11:59] VITALS: BP 123/66
--- NOTE | 2020-12-02 12:00 | NUR ---
LYING IN DAVONTE BED RESTING MONITORED FREQUENTLY.
--- NOTE | 2020-12-02 14:00 | NUR ---
SITTING UP IN DAVONTE BED HOLLERING OUT LOUDLY ASKING FOR DIRT. REDIRECTED AND MONITORED CLOSELY.
--- NOTE | 2020-12-02 14:29 | NUR ---
PATIENT SITTING UP IN DAVONTE BED KOTA ALOUD REDIRECTION ATTEMTED WITH NO SUCCESS. WILL CONTNUE TO MONITOR.
--- NOTE | 2020-12-02 16:00 | NUR ---
IN DAVONTE BED MONITORED FREQUENTLY.
--- NOTE | 2020-12-02 18:00 | NUR ---
RESTING WITH NADN. REMAINS IN DAVONTE BED AND MONITORED CLOSELY.
--- NOTE | 2020-12-02 22:13 | NUR ---
PATIENT IN DAVONTE BED, YELLS OUT TO HAVE NEEDS MET. CONFUSED. TOOK EVENING MEDICATION BUT REFUSING VITAL SIGNS. WILL CONTINUE TO MONITOR.
[2020-12-03 00:41] VITALS: BP 126/73
--- NOTE | 2020-12-03 05:09 | NUR ---
PATIENT FOUND TO HAVE NO IV ACCESS. ATTEMPTED TO START PIV, PATIENT AGITATED, STATED "IF YOU KEEP UP WITH YOUR SHIT IM GOING TO WHOOP YOUR ASS IN FRONT OF EVERYONE." UNABLE TO REDIRECT AT THIS TIME. WILL REATTEMPT LATER. PATIENT RECIEVING NO MEDICATIONS OR FLUIDS VIA IV AT THIS TIME.
[2020-12-03 07:32] LABS: BASOPHILS 0.2 % (0-2); EOSINOPHILS 3.4 % (0-7); HEMATOCRIT 34.7 % (42.0-54.0); HEMOGLOBIN 11.5 g/dL (13.5-17.5); IMMATURE GRANULOCYTES 0.1 % (0-5); LYMPHOCYTE ABS# 4.57 10x3/uL (1.32-3.57); LYMPHOCYTES 49.5 % (15-50); MCH 31.4 pg (26.0-34.0); MCHC 33.1 g/dL (31.0-37.0); MCV 94.8 fL (80.0-100.0); MEAN PLATELET VOLUME 8.4 fL (7.4-10.4); MONOCYTES 6.4 % (2-11); NEUTROPHIL ABS# 3.74 10x3/uL (1.78-5.38); NEUTROPHILS 40.4 % (40-80); PLATELET COUNT 205 10x3/uL (130-400); RBC 3.66 10x6/uL (4.20-6.10); RDW 13.7 % (11.5-14.5); WBC 9.2 10x3/uL (4.8-10.8)
[2020-12-03 07:55] LABS: ALBUMIN 3.4 g/dL (3.4-5.0); ALKALINE PHOSPHATASE 194 U/L (30-120); ALT (SGPT) 24 U/L (10-68); BILIRUBIN - TOTAL 0.31 mg/dL (0.2-1.3); CALC OSMOLALITY 274 mosm/kg (275-300); CALCIUM 8.2 mg/dL (8.5-10.1); CARBON DIOXIDE 27.9 mmol/L (21.0-32.0); CHLORIDE - SERUM 104 mmol/L (98-107); CREATININE - SERUM 0.8 mg/dL (0.6-1.3); GLUCOSE 86 mg/dL (74-106); PHENYTOIN (DILANTIN) 28.4 ug/mL (10.0-20.0); POTASSIUM - SERUM 3.6 mmol/L (3.5-5.1); PROTEIN - SERUM 6.3 g/dL (6.4-8.2); SODIUM 138 mmol/L (136-145); eGFR NON AFRICAN AMERICAN > 90 mL/min (90-120)
[2020-12-03 08:00] LABS: UREA NITROGEN 12 mg/dL (7-18)
[2020-12-03 09:33] VITALS: BP 123/80
--- NOTE | 2020-12-03 11:14 | NUR ---
ASSESSMENT PER FLOW SHEET. PATIENT IS CONFUSED TO WHERE HE IS AT AND HOW HE GOT HERE. RE ORIENTATED TO PLACE. DAVONTE BED OPEN DURING BREAKFAST. PT ATE 80 PERCENT OF FOOD. DOOR OPEN TO MONITOR
[2020-12-03 12:23] VITALS: BP 128/76
[2020-12-03 16:00] VITALS: BP 102/66
--- NOTE | 2020-12-03 16:02 | NUR ---
DAVONTE BED HAS BEEN OPEN FOR AWHILE NOW. PATIENT IS NOT TRYING TO GET OUT OF BED AT PRESENT. HE DOES YELL OUT AT TIMES. SAYS HE WANTS TO DC HOME TODAY. HE ALSO WANTS TO DIP. I ASK IF HE WOULD LIKE NICOTINE PATCH AND HE SAID NO. DOOR REMAINS OPEN TO MONITOR
--- NOTE | 2020-12-03 17:37 | NUR ---
HAS STARTED YELLING OUT AND CURSING. SAYS HE WILL DO WHAT HE WANTS. HE HAS GOT OUT OF BED AND HAS HIT AT NURSING STAFF. HE REFUSED TO GET IN BED. SECURITY CALLED FOR SAFETY.PATIENT RETURNED TO BED
--- NOTE | 2020-12-03 18:51 | NUR ---
PSYCHIATRIC EXPLAINED TO PATIENT AGAIN.HE IS ANGRY BECAUSE HE WANTS TO DIP AND SAYS HE WANTS TO GO BACK TO HIS ROOM. ATTEMPTED TO EXPLAIN TO HIM HE WAS PUT BACK IN PSYCHIATRIC FOR HIS SAFETY AND STAFF SAFETY. I TOLD HIM HE CANNOT ATTEMPT TO HIT STAFF. CALL TO CENTRAL OFFICE FRAME WIRER TO COME AND TALK WITH PT.
--- NOTE | 2020-12-03 23:26 | NUR ---
PATIENT YELLING OUT, COMBATIVE, DEMANDING TO BE RELEASED FROM DAVONTE BED. EDUCATION PROVIDED. ATTEMPTS TO REDIRECT UNSUCCESSFUL. WILL CONTINUE TO MONITOR.
[2020-12-04 00:48] VITALS: BP 126/75
[2020-12-04 04:52] LABS: HEMATOCRIT 36.7 % (42.0-54.0); HEMOGLOBIN 12.2 g/dL (13.5-17.5); LYMPHOCYTE ABS# 5.32 10x3/uL (1.32-3.57); MCH 31.4 pg (26.0-34.0); MCHC 33.2 g/dL (31.0-37.0); MCV 94.3 fL (80.0-100.0); MEAN PLATELET VOLUME 8.4 fL (7.4-10.4); NEUTROPHIL ABS# 3.49 10x3/uL (1.78-5.38); PLATELET COUNT 219 10x3/uL (130-400); RBC 3.89 10x6/uL (4.20-6.10); RDW 13.8 % (11.5-14.5); WBC 9.8 10x3/uL (4.8-10.8)
[2020-12-04 05:22] LABS: ALBUMIN 3.4 g/dL (3.4-5.0); ALKALINE PHOSPHATASE 194 U/L (30-120); ALT (SGPT) 23 U/L (10-68); BILIRUBIN - TOTAL 0.22 mg/dL (0.2-1.3); CALC OSMOLALITY 272 mosm/kg (275-300); CALCIUM 8.5 mg/dL (8.5-10.1); CARBON DIOXIDE 25.5 mmol/L (21.0-32.0); CHLORIDE - SERUM 104 mmol/L (98-107); CREATININE - SERUM 0.9 mg/dL (0.6-1.3); GLUCOSE 88 mg/dL (74-106); PHENYTOIN (DILANTIN) 23.4 ug/mL (10.0-20.0); POTASSIUM - SERUM 3.7 mmol/L (3.5-5.1); PROTEIN - SERUM 6.9 g/dL (6.4-8.2); SODIUM 137 mmol/L (136-145); UREA NITROGEN 13 mg/dL (7-18); eGFR NON AFRICAN AMERICAN > 90 mL/min (90-120)
[2020-12-04 05:39] LABS: EOSINOPHILS 1 % (0-7); LYMPHOCYTES 63 % (15-50); MONOCYTES 1 % (2-11); NEUTROPHILS 35 % (40-80); PLATELET ESTIMATE DECREASED
--- NOTE | 2020-12-04 08:00 | NUR ---
SITTING UP IN DAVONTE BED WITH NADN. MONITORED FREQUENTLY.
[2020-12-04 08:36] VITALS: BP 135/86
--- NOTE | 2020-12-04 10:00 | NUR ---
PATIENT LYING IN DAVONTE BED QUIETLY AT THIS TIME. MONITORED CLOSELY.
[2020-12-04 12:26] VITALS: BP 119/74
--- NOTE | 2020-12-04 14:44 | NUR ---
PATIENT CONFUSED AND WILL NOT LEAVE SCD'S ON EDUCATION PROVIDED.
--- NOTE | 2020-12-04 15:33 | NUR ---
PT SITTING IN DAVONTE BED KOTA LET ME OUT. REFUSED LOVENOX INJECTION STATES IF I LET HIM LEAVE HE WILL TAKE IT. EDUCATION AND REDIRECTION ATTEMPTED. WILL CONTINUE TO MONITOR AND TRY TO GIVE MEDICATION LATER.
--- NOTE | 2020-12-04 16:44 | MORECARE ---
CASE MANAGEMENT DISCHARGE SUMMARY PATIENT: YUDITH LÓPEZ UNIT: [id number] ADM DATE: 12/02/20 AGE: 60 : 60 SEX: M ROOM/BED: D.2232 AUTHOR: LIZZ ROJAS PHYSICIAN: REFERRING PHYSICIAN: MAGNO BRANDON MD DATE OF SERVICE: 12/04/20 Discharge Plan Patient Name: YUDITH LÓPEZ [facility] [facility] 1960 Planned Disposition: Anticipated Discharge Date: Discharge Date: Expected LOS: Initial Reviewer: [email or web address] Initial Review Date: 12/01/2020 Generated: 12/04/20 5:43 pm Coverage Notice Reviewer: [email or web address] Amber Muñoz Notice Issued Date-Time: 12/02/2020 12:01 Notice Type: Medicare Outpatient Observation Notice Notice Delivered To: Patient Relationship to Patient: Self Ethologist Name: Delivery Method: HAND - Hand Delivered Kelsey Days: Prior Verbal Notification: Recipient Understood Notice: Recipient Signature: Med Rec Note Co-signed by Attending: Coverage Notice Comment: Patient unable to sign. I attempted to call family listed on facesheet without an answer. He lives at [facility] Patient Name: YUDITH LÓPEZ Page [phone] at 1644 All edits/amendments must be made on the electronic document DICTATION DATE: 12/04/201642 AIR CONDITIONING INSTALLER SUPERVISOR: ANGELY 12/04/201642 RPT#: [id number] DC DATE: STATUS: ADM IN [facility] [address] [place] [address] END OF REPORT
--- NOTE | 2020-12-04 16:58 | MORECARE ---
CASE MANAGEMENT DISCHARGE SUMMARY PATIENT: YUDITH LÓPEZ UNIT: [id number] ADM DATE: 12/02/20 AGE: 60 : 60 SEX: M ROOM/BED: D.2232 AUTHOR: BOB,DOC PHYSICIAN: REFERRING PHYSICIAN: MAGNO BRANDON MD DATE OF SERVICE: 12/04/20 Discharge Plan Patient Name: YUDITH LÓPEZ Facility: [facility]:[place] : 1960 Planned Disposition: Anticipated Discharge Date: Discharge Date: Expected LOS: Initial Reviewer: [email or web address] Initial Review Date: 12/01/2020 Generated: 12/04/20 5:57 pm Comments DCP- Discharge Planning Updated by [email or web address]: Lisa Angulo on 12/04/20 2:[address] Patient Name: YUDITH LÓPEZ Admission Status: ER Accout number: [id number] Admission Date: 12-02-2020 : 1960 Admission Diagnosis:ALTERED MENTAL STATUS, UNSPECIFIED Attending: GEOFFREY Current LOS: 2 Anticipated DC Date: Planned Disposition: Primary Insurance: MEDICARE A & B Discharge Planning Comments: CM met with patient at bedside after obtaining verbal consent. Patient is currently in a [facility] bed. He states wants out. He is oriented to person but not place and time. He says he is from home with a niece,his chart states he is from [facility]. Looks like he is in a [facility] bed at nursing facility but his last visit he was there for skilled. I anticipate patient to dc back to [facility] soon. CM to follow and assist as needed. Prepress Stripper: Lisa Angulo DCPIA - Discharge Planning Initial Assessment Updated by [email or web address]: Lisa Angulo on 12/04/20 4:44 pm * Is the patient Alert and Oriented? No * PCP [facility] * Pharmacy SAME * Preadmission Environment [facility] * Facility Name [facility] * Can the patient safely return to the preadmission environment? Yes * Has this patient been hospitalized within the prior 30 days at any hospital? Yes Coverage Notice Reviewer: [email or web address] Amber Muñoz Notice Issued Date-Time: 12/02/2020 12:01 Notice Type: Medicare Outpatient Observation Notice Notice Delivered To: Patient Relationship to Patient: Self Tube Operator Name: Delivery Method: HAND - Hand Delivered Kelsey Days: Prior Verbal Notification: Recipient Understood Notice: Recipient Signature: Med Rec Note Co-signed by Attending: Coverage Notice Comment: Patient unable to sign. I attempted to call family listed on facesheet without an answer. He lives at [facility] Last DP export: 12/04/20 2:44 p Patient Name: YUDITH LÓPEZ Page [phone] at 1658 All edits/amendments must be made on the electronic document DICTATION DATE: 12/04/201656 PIT MANAGER: ANGELY 12/04/201656 RPT#: [id number] DC DATE: STATUS: ADM IN [facility] [address] [place] [address] END OF REPORT
[2020-12-04 17:00] VITALS: BP 109/76
[2020-12-04 20:00] VITALS: BP 127/77
[2020-12-05] VITALS: BP 127/73
[2020-12-05 04:00] VITALS: BP 126/83
--- NOTE | 2020-12-05 07:15 | NUR ---
REC'D IN AWAKE AND ALERT IN DAVONTE BED. RESP EVEN AND UNLABORED WITH NO DISTRESS NOTED. CONTINUE TO YELL OUT AT TIMES WITH REDIRECTION GIVEN WITH LITTLE SUCCESS NOTED. ASSESSMENT COMPLETED. DENIES ANY PAIN OR DISCOMFORT AT THIS TIME. C/L IN REACH AT BEDSIDE.
--- NOTE | 2020-12-05 07:25 | NUR ---
PATIENT CONTINUES TO BE COMBATIVE, YELL OUT. RECIEVED ORDER FOR IM HALDOL, ADMINISTERED. PATIENT MODERATELY CALMER, EASIER TO REDIRECT.
[2020-12-05 08:26] VITALS: BP 141/80
[2020-12-05 12:43] VITALS: BP 121/71
[2020-12-05 13:50] VITALS: Ht 180.3 cm; Wt 75.3 kg
[2020-12-05 20:00] VITALS: BP 125/74
[2020-12-06] VITALS: BP 107/69
[2020-12-06 04:00] VITALS: BP 189/57
--- NOTE | 2020-12-06 05:00 | NUR ---
PATIENT CONTINUES TO YELL AND BE VERBALLY AGGRESSIVE TOWARDS STAFF. ABLE TO REIDIRECT MOST OF THE TIME.
--- NOTE | 2020-12-06 08:01 | NUR ---
RECIEVED BEDSIDE REPORT. PATIENT IN DAVONTE BED. EVALUATED A HIGH FALL RISK. FREE FROM SIGNS OF DISTRESS. DENIES NEEDS. WILL CONTINUE TO MONITOR.
[2020-12-06 08:14] VITALS: BP 133/79
[2020-12-06 12:19] VITALS: BP 110/74
[2020-12-06 17:05] VITALS: BP 112/72
--- NOTE | 2020-12-07 03:40 | NUR ---
I have reviewed this patient and I concur with the Shift Assessment completed by the Licensed Practical Nurse today this shift.
[2020-12-07 04:00] VITALS: BP 139/90
--- NOTE | 2020-12-07 04:52 | NUR ---
PT IN DAVONTE BED, REFUSE TO TAKE MEDICATION. HE HAS BEEN VERBALLY AGGRESSIVE TOWARD STAFF AND DEMANDS NICOTINE DIP HE WAS EXPLAINED THAT HE WAS OUT. NICOTINE PATCH PLACE ON RIGHT SHOULDER. WILL CONT TO MONITOR.
[2020-12-07 06:02] LABS: BASOPHILS 0.4 % (0-2); EOSINOPHILS 2.8 % (0-7); HEMATOCRIT 37.1 % (42.0-54.0); HEMOGLOBIN 12.4 g/dL (13.5-17.5); IMMATURE GRANULOCYTES 0.1 % (0-5); LYMPHOCYTE ABS# 4.25 10x3/uL (1.32-3.57); LYMPHOCYTES 52.5 % (15-50); MCH 31.5 pg (26.0-34.0); MCHC 33.4 g/dL (31.0-37.0); MCV 94.2 fL (80.0-100.0); MEAN PLATELET VOLUME 8.6 fL (7.4-10.4); MONOCYTES 6.8 % (2-11); NEUTROPHIL ABS# 3.02 10x3/uL (1.78-5.38); NEUTROPHILS 37.4 % (40-80); PLATELET COUNT 232 10x3/uL (130-400); RBC 3.94 10x6/uL (4.20-6.10); RDW 13.7 % (11.5-14.5); WBC 8.1 10x3/uL (4.8-10.8)
[2020-12-07 06:38] LABS: ALBUMIN 3.8 g/dL (3.4-5.0); ALKALINE PHOSPHATASE 195 U/L (30-120); ALT (SGPT) 33 U/L (10-68); BILIRUBIN - TOTAL 0.34 mg/dL (0.2-1.3); CALC OSMOLALITY 267 mosm/kg (275-300); CALCIUM 8.5 mg/dL (8.5-10.1); CARBON DIOXIDE 25.7 mmol/L (21.0-32.0); CHLORIDE - SERUM 101 mmol/L (98-107); CREATININE - SERUM 0.7 mg/dL (0.6-1.3); GLUCOSE 89 mg/dL (74-106); PHENYTOIN (DILANTIN) 5.8 ug/mL (10.0-20.0); POTASSIUM - SERUM 3.6 mmol/L (3.5-5.1); PROTEIN - SERUM 7.5 g/dL (6.4-8.2); SODIUM 135 mmol/L (136-145); UREA NITROGEN 11 mg/dL (7-18); eGFR NON AFRICAN AMERICAN > 90 mL/min (90-120)
--- NOTE | 2020-12-07 07:24 | NUR ---
RECIEVED BEDSIDE REPORT. PATIENT IN DAVONTE BED FREE FROM SIGNS OF DISTRESS, SLEEPING. CALL LIGHT IN REACH. WILL CONTINUE TO MONITOR.
[2020-12-07 08:14] VITALS: BP 122/75
--- NOTE | 2020-12-07 12:01 | MORECARE ---
CASE MANAGEMENT DISCHARGE SUMMARY PATIENT: YUDITH LÓPEZ UNIT: [id number] ADM DATE: 12/02/20 AGE: 60 : 60 SEX: M ROOM/BED: D.2232 AUTHOR: BOB,DOC PHYSICIAN: REFERRING PHYSICIAN: MAGNO BRANDON MD DATE OF SERVICE: 12/07/20 Case Management Discharge Planning Summary DCP REVIEW SUMMARY ANTICIPATED D/C DATE: EXPECTED LOS : CASE STATUS: DCP Initiated INITIAL REVIEW: 12/05/2020 INITIAL REVIEWER: Lisa Angulo FINAL DISCHARGE DISPOSITION: : FINAL REVIEWER: FINAL REVIEW DATE: DCP Focus Questions & Answers - Added on: QUESTION: ANSWER : PATIENT: YUDITH LÓPEZ ENCOUNTER: [id number] MEDICAL RECORD#: [id number] ADMISSION DATE: 12/02/2020 DISCHARGE DATE: ATTENDING MD: : AGE: 60 MARITAL STATUS: S DC PLAN ID: [id number] FACILITY: [facility] PRINTED ON: 12/07/20 12:01 CT All edits/amendments must be made on the electronic document DICTATION DATE: 12/07/20 120 EYELET CUTTER: DM 12/07/20 1201 RPT#: [id number] DC DATE: STATUS: ADM IN [facility] [address] [place] [address] END OF REPORT
[2020-12-07 12:24] VITALS: BP 117/73
--- NOTE | 2020-12-07 13:15 | NUR ---
EATING LUNCH WITH MINIMAL ASSIST. PATIENT ORIENTED TO SELF. CONFUSED TO TIME, PLACE AND SITATUION. FREE FROM SIGNS OF DISTRESS. WILL CONTINUE TO MONITOR.
[2020-12-07 18:46] VITALS: BP 103/67
[2020-12-07 20:00] VITALS: BP 117/77
--- NOTE | 2020-12-08 03:40 | NUR ---
PT LYING IN DAVONTE BED WITH EYES CLOSED. NO SIGNS OF DISTRES AT THE MOMENT WILL CONT TO MONITOR.
[2020-12-08 04:00] VITALS: BP 144/88
--- NOTE | 2020-12-08 05:06 | NUR ---
I have reviewed this patient and I concur with the Shift Assessment completed by the Licensed Practical Nurse today this shift.
--- NOTE | 2020-12-08 06:29 | NUR ---
ATTEMPT TO GET PT OF DAVONTE BED UNZIPPED PT TRYING TO CRAWL OUT OF IT TWICE ON HIS OWN AND REQUEST TO BE OUT. PT REMAINS IN BED WILL INFORM AM NURSE.
--- NOTE | 2020-12-08 08:00 | NUR ---
PATIENT ALERT AND COOPERATIVE WITH CARE WITH SIDE OF BED OPEN AT THIS TIME AND ENCOURAGED TO USE CALL LIGHT FOR ASSSIT. PATIENT DEMONSTRATED UNDERSTANDING WIZAK DISCUSSED RISK FOR FALLS AND BENEFITS TO BE REMOVED FROM DAVONTE BED IF COMPLIANT WITH REQUESTS. DEMONSTRATED COMPLIANCE WITH INCENTIVE SPIROMETRY
[2020-12-08 09:23] VITALS: BP 128/79
--- NOTE | 2020-12-08 10:00 | NUR ---
PATIENT CALM AND COOPERATIVE W/O ATTEMPT TO GET OUT OF DAVONTE BED AT THIS TIME WITH SIDE OPEN. GOOD ROM OF EXT.X4 AND DENIES ANY PAIN OR DISCOMFORT. ENCORAGED TO USE CALL LIGHT FOR ASSIST.
--- NOTE | 2020-12-08 12:00 | NUR ---
PATIENT UP AT BEDSIDE STATED HE WAS LOOKING FOR HIS BELT. PATIENT TAKEN TO BATHROOM WITH SBA AND ASSSITED BACK TO BED. REINSTRUCTED TO USE CALL LIGHT FOR ASSIST. DAVONTE BED OPEN AT THIS TIME. WILL CONT. TO MONITOR.
[2020-12-08 12:31] VITALS: BP 137/55
--- NOTE | 2020-12-08 14:00 | NUR ---
PATIENT UP AT BEDSIDE LOOKING FOR BELT. REINSTRUCTED THAT HE DIDN'T HAVE BELT HERE AND INSTRUCTED WAS SUPPOST TO USE CALL LIGHT PRIOR TO GETTING UP. STATED HE FORGOT. DAVONTE BED CLOSED WITH CALL LIGHT IN REACH
--- NOTE | 2020-12-08 15:40 | NUR ---
PATIENT REQUESTED NEED TO GO TO BATHROOM WITH DAVONTE BED UNZIPPED AND ASSSITED TO BATHROOM WITH SBA. PATIENT THEN REFUSED TO ALLOW DAVONTE BED ZIPPED BACK UP.HALDOL GIVEN PER ORDER FOR AGITIATION IM WITH PATINET BEING MONITORED
[2020-12-08 16:36] VITALS: BP 129/94
--- NOTE | 2020-12-08 17:00 | NUR ---
DAVONTE BED ZIPPED WITH PATIENT COMPLIANT AT THIS TIME. ENCOURAGED TO USE CALL LIGHT FOR ASSSIT.
[2020-12-08 20:33] VITALS: BP 122/89
--- NOTE | 2020-12-09 04:05 | NUR ---
PATIENT UP AT BEDSIDE REQUESTED TO GET OUT OF BED AND HE WANTED PAIN MEDICINE. PT DECLINE TYLENOL. HALDOL GIVEN PER ORDER FOR AGITATION. WILL CONT TO MONITOR PT.
[2020-12-09 05:47] VITALS: BP 120/79
--- NOTE | 2020-12-09 06:13 | NUR ---
I have reviewed this patient and I concur with the Shift Assessment completed by the Licensed Practical Nurse today this shift.
--- NOTE | 2020-12-09 08:06 | NUR ---
pt laying in rikki bed, bed opened, meds given, construction plant operator in to get vs, bed zipped and secured, no signs of distress
[2020-12-09 08:10] LABS: HEMATOCRIT 36.5 % (42.0-54.0); HEMOGLOBIN 12.2 g/dL (13.5-17.5); LYMPHOCYTE ABS# 4.17 10x3/uL (1.32-3.57); MCH 31.4 pg (26.0-34.0); MCHC 33.4 g/dL (31.0-37.0); MCV 94.1 fL (80.0-100.0); MEAN PLATELET VOLUME 8.6 fL (7.4-10.4); PLATELET COUNT 196 10x3/uL (130-400); RBC 3.88 10x6/uL (4.20-6.10); RDW 13.7 % (11.5-14.5); WBC 7.4 10x3/uL (4.8-10.8)
[2020-12-09 08:18] LABS: ALBUMIN 3.7 g/dL (3.4-5.0); ALKALINE PHOSPHATASE 182 U/L (30-120); ALT (SGPT) 26 U/L (10-68); BILIRUBIN - TOTAL 0.36 mg/dL (0.2-1.3); CALC OSMOLALITY 271 mosm/kg (275-300); CALCIUM 8.6 mg/dL (8.5-10.1); CARBON DIOXIDE 25.2 mmol/L (21.0-32.0); CHLORIDE - SERUM 104 mmol/L (98-107); CREATININE - SERUM 0.7 mg/dL (0.6-1.3); GLUCOSE 96 mg/dL (74-106); POTASSIUM - SERUM 3.9 mmol/L (3.5-5.1); PROTEIN - SERUM 6.9 g/dL (6.4-8.2); SODIUM 137 mmol/L (136-145); UREA NITROGEN 7 mg/dL (7-18); eGFR NON AFRICAN AMERICAN > 90 mL/min (90-120)
[2020-12-09 09:00] VITALS: BP 123/78
[2020-12-09 09:08] LABS: EOSINOPHILS 3 % (0-7); LYMPHOCYTES 67 % (15-50); MONOCYTES 3 % (2-11); NEUTROPHILS 27 % (40-80); PLATELET ESTIMATE NORMAL
[2020-12-09 13:29] VITALS: BP 137/73
[2020-12-09 16:43] VITALS: BP 113/79
--- NOTE | 2020-12-09 20:30 | NUR ---
AWAKE ALERT ORIENTED TO NAME ONLY. REMAINS IN ENCLOSURE BED FOR SAFTEY. NO DISTRESS NOTED.CL IN REACH
[2020-12-09 21:25] VITALS: BP 154/77
--- NOTE | 2020-12-10 01:47 | NUR ---
I have reviewed this patient and I concur with the Shift Assessment completed by the Licensed Practical Nurse today this shift.
[2020-12-10 06:26] VITALS: BP 160/53
--- NOTE | 2020-12-10 07:24 | NUR ---
WHILE MAKING ROUNDS FOUND PATIENT SITTING IN FLOOR BESIDE BED. ENCLOSURE BED HAD BEEN LEFT UNZIPPED AND PATIENT STATES HE WAS TRYING TO GET HIS "DIRT".PATIENT ASSISTED BACK TO BED. DENIES PAIN.PROCESS CONSULTANT AND DR TAN NOTIFIED. NO ORDERS RECEIVED.
[2020-12-10 08:40] VITALS: BP 119/72
--- NOTE | 2020-12-10 08:40 | NUR ---
PT ALERT IN BED UPON ENTERING. ADMINISTERED MORNING MEDICAITON, NO DIFFICULTIES. ASSESSMENT PERFORMED AT THIS TIME. DENIES ANY NEEDS AT THIS TIME. PT IN DAVONTE BED, ALL ZIPPERS ARE CLOSED AND SECURED. WILL CONTINUE POC.
[2020-12-10 12:11] VITALS: BP 122/77
--- NOTE | 2020-12-10 17:15 | NUR ---
PT AMBULATING TO THE BATHROOM, SWATTED AT NURSE SAYING "DON'T TOUCH ME", TRIED TO MOVE PT GOWN FROM GETTING PEED ON PT GOT AGITATED SAWTTING AT NURSE, WHEN MEAL TRAYS ARRIVED TRIED TO MOVE LUNCH TRAY AND PT SLAMMED HIS HAND DOWN ON THE TRAY AND YANKED IT AWAY, BOTH TRAYS STILL CURRENTLY IN ROOM, PRIMARY NURSE TRIED TO ASSISTED PT TO THE BATHROOM AND PT GOT VERY AGGRESSIVE AND ACTED LIKE HE WAS GOING TO HIT THE NURSE, RN GOT PT BACK TO BED, CLIPS SECURED, LUNCH TRAY IN BED, NO KNIVES OR FORKS PRESENT
[2020-12-10 20:00] VITALS: BP 140/83
--- NOTE | 2020-12-10 20:00 | NUR ---
PT SITTING UP IN DAVONTE BED, DRINK GIVEN PER REQUEST. PT PLEASANT, FOLLOWS COMMANDS, CPOC.
--- NOTE | 2020-12-10 22:00 | NUR ---
PT SITTING UP UN DAVONTE BED, DRINKING COKE. NO NEEDS VOICED, CTM.
[2020-12-11] VITALS: BP 116/79
--- NOTE | 2020-12-11 | NUR ---
SUPINE IN DAVONTE BED, RESPIRATIONS EVEN/NONLABORED. NO S/SX OF DISTRESS, CTM.
--- NOTE | 2020-12-11 02:00 | NUR ---
NO S/SX OF DISTRESS, PT SLEEPING, CTM.
--- NOTE | 2020-12-11 03:54 | NUR ---
I have reviewed this patient and I concur with the Shift Assessment completed by the Licensed Practical Nurse today this shift.
--- NOTE | 2020-12-11 03:57 | NUR ---
SIDELYING IN BED, EYES CLOSED, CHEST RISE NOTED, CPOC.
[2020-12-11 04:00] VITALS: BP 124/73
--- NOTE | 2020-12-11 06:00 | NUR ---
SUPINE IN BED, SPONTANEOUS EYE OPENING UPON VERBAL STIMULATION. COKE WITH ICE GIVEN PER REQUEST, NO FURTHER NEEDS VOICED, CTM.
[2020-12-11 09:06] VITALS: BP 126/81
--- NOTE | 2020-12-11 09:48 | NUR ---
PATIENT SITTING UP IN DAVONTE BED HOLLERING OUT LOUD CURSING AND STATING INAPPROPIATE WORDS. HALLUCIANATIONS OBSERVED. MONITORED CLOSELY.
--- NOTE | 2020-12-11 11:42 | NUR ---
PATIENT SITTING UP IN DAVONTE BED CONTINUOSLY HOLLERING OUT "I WANNA GO HOME" ATTEMTPED TP REORIENT PATIENT SEVERAL TIMES. WILL CONTINUE TO MONITOR.
--- NOTE | 2020-12-11 13:23 | NUR ---
Nutrition follow-up: Pt sitting on side of rikki bed eating lunch at time or RD visit. Diet order: low sodium PO intake ~50-75% of some meals Pt continues with some confusion per nurse; aggressive at times labs reviewed No new wt to assess No BM charted; lactulose daily PO intake is fair to good at some meals Will continue to provide food choices with selective menus and honor food preferences within diet restrictions. Follow-up: 12/18/20
--- NOTE | 2020-12-11 14:17 | NUR ---
SITTING IN DAVONTE BED REQEUSTING TO BE LET OUT STATES " WHY YALL HOLDING ME IN HERE LIKE I'M IN [facility]." CONTINUES TO SAY INAPRROPATE WORDS. MONITORED CLOSELY.
--- NOTE | 2020-12-11 16:10 | NUR ---
NEW ORDER FOR NICODERM PATCH ADMINISTERED ONE THIS AM.
--- NOTE | 2020-12-11 16:13 | NUR ---
LYING IN DAVONTE BED RESTING QUIETLY AT THIS TIME. NADN. MONITORED FREQUENTLY.
[2020-12-11 20:00] VITALS: BP 110/72
--- NOTE | 2020-12-11 20:00 | NUR ---
PT REPORTS NEED TO HAVE BM. STANDBY ASSIST TO RESTROOM. PTs GAIT APPEARS VERY WEAK/UNSTEADY. ATTEMPTED TO CLEAN INSIDE OF DAVONTE BED WITH SANITIZING WIPES AND REMOVED TRASH. PT UNABLE TO PASS BM. PT REPORTED DIZZINESS WHILE AMBULATING BACK TO BED. SAFELY MADE IT TO DAVONTE BED. NEW LINENS GIVEN. PT REQUESTING HIS, "DIRT" (DIP). UNABLE TO FIND IN ROOM. INFORMED PT HE MAY BE OUT. DAVONTE SECURED SHUT, CPOC.
--- NOTE | 2020-12-11 22:00 | NUR ---
ENTERED ROOM IN RESPONSE TO PT SHOUTING LOUDLY, "I WANT MY DIRT!!" PT AGGITATED AND INSISTS HE NEEDS HIS DIP. REMINDED PT HE WAS OUT. PT CUSSING AND RAISING HIS VOICE. ASSURED PT I WOULD BE BACK TO CONTINUE LOOKING, PT CEASED YELLING. CPOC.
--- NOTE | 2020-12-11 23:59 | NUR ---
I have reviewed this patient and I concur with the Shift Assessment completed by the Licensed Practical Nurse today this shift.
[2020-12-12] VITALS: BP 125/69
--- NOTE | 2020-12-12 02:00 | NUR ---
SUPINE IN BED, RESPIRATIONS EVEN, NONLABORED. CTM.
[2020-12-12 04:00] VITALS: BP 137/77
--- NOTE | 2020-12-12 04:00 | NUR ---
SUPINE IN BED, NO S/SX OF DISTRESS, CPOC.
--- NOTE | 2020-12-12 06:00 | NUR ---
SPONTANEOUS EYE OPENING UPON VERBAL STIMULATION. REPORTS NEED TO VOID. OPENED SIDE OF BED, PT STOOD TO USE URINAL. DENIES DIZZINESS AFTER GETTING UP. LINENS AND GOWN CHANGED, CPOC.
--- NOTE | 2020-12-12 08:00 | NUR ---
PATIENT AMBULATING IN ROOM UPON ENTERING ASSISTED TO SIT AT BEDSIDE PT COMPLIANT AND FOLLOWS [id number]. CONTINUES WITH DAVONTE BED AND MONITORED FREQUENTLY. ASSISTED WITH MEAL PREPARATION AND SET UP. NADN. WILL CONTINUE CURRENT PLAN OF CARE.
[2020-12-12 08:30] VITALS: BP 111/80
--- NOTE | 2020-12-12 09:57 | MORECARE ---
CASE MANAGEMENT DISCHARGE SUMMARY PATIENT: YUDITH LÓPEZ UNIT: [id number] ADM DATE: 12/02/20 AGE: 60 : 60 SEX: M ROOM/BED: D.2232 AUTHOR: BOB,DOC PHYSICIAN: REFERRING PHYSICIAN: MAGNO BRANDON MD DATE OF SERVICE: 12/12/20 Case Management Discharge Planning Summary COMMENTS ENTERED DATE: 12/12/20 9:47 CT COMMENT TYPE: Discharge Planning REVIEWER: Lisa Angulo SPOKE WITH [facility] AND THIS PATIENT WILL NEED TO BE OUT OF RESTRAINTS FOR 48 HOURS BEFORE THEY WILL ACCEPT HIM BACK. HALF-WAY CONSULT WAS ORDERED TO SEE IF PATIENT WOULD BE APPROPRIATE FOR HALF-WAY PRIOT TO DC BACK TO NURSING FACILITY. CM TO FOLLOW AND ASSIST NEEDED. DCP REVIEW SUMMARY ANTICIPATED D/C DATE: EXPECTED LOS : CASE STATUS: DCP Initiated INITIAL REVIEW: 12/05/2020 INITIAL REVIEWER: Lisa Angulo FINAL DISCHARGE DISPOSITION: : FINAL REVIEWER: FINAL REVIEW DATE: DCP Focus Questions & Answers - Added on: QUESTION: ANSWER : PROVIDER NETWORKING REVIEW DATE: 12/11/2020 SERVICE TYPE: Intermediate Facility REVIEWER: Lisa Angulo PROVIDER: FINAL PROVIDER? : FINAL DATE/TIME: CT PATIENT: YUDITH LÓPEZ ENCOUNTER: [id number] MEDICAL RECORD#: [id number] ADMISSION DATE: 12/02/2020 DISCHARGE DATE: ATTENDING MD: : AGE: 60 MARITAL STATUS: S DC PLAN ID: [id number] FACILITY: [facility] PRINTED ON: 12/12/20 9:57 CT All edits/amendments must be made on the electronic document DICTATION DATE: 12/12/20956 BAND BIAS MACHINE OPERATOR: DM 12/12/20956 RPT#: [id number] DC DATE: STATUS: ADM IN [facility] [address] [place] [address] END OF REPORT
--- NOTE | 2020-12-12 10:00 | NUR ---
SITTING IN DAVONTE BED RESTING QUIETLY AT THIS TIME. MONITORED FREQUENTLY.
--- NOTE | 2020-12-12 12:10 | NUR ---
IN DAVONTE BED RESTING QUIETLY. MONITORED CLOSELY.
[2020-12-12 13:16] VITALS: BP 127/78
--- NOTE | 2020-12-12 14:17 | NUR ---
SITTING ON SIDE OF DAVONTE BED EATING LUNCH. CHECKED FREQUENTLY.
--- NOTE | 2020-12-12 15:24 | CN ---
PATIENT NAME:YUDITH LÓPEZ MEDICAL RECORD: [id number] : 60 LOCATION:[id number] ADMIT DATE: 12/02/20 ACCOUNT: [id number] CONSULTING PHYSICIAN: NITA KOCH MD REFERRING PHYSICIAN: MAGNO BRANDON MD DATE OF CONSULTATION: 12/11/2020 IDENTIFYING DATA: The patient is a 60-year-old and he was admitted to the hospital secondary to mental status changes. CHIEF COMPLAINT: None. HISTORY OF PRESENT ILLNESS: The patient has a history of a head injury. He is very impaired cognitively and poorly oriented. He is talking to me about some sort of a problem with his ankle that is not even related to the questions he has been asked. He has had some significant agitation and currently is in a Hooker bed. I am not sure about his background, but I do not believe that he is capable of living alone and certainly is not capable of doing so at this time. ASSESSMENT: 1. Delirium. 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 PLAN: At this time, the patient should be treated with anticonvulsant medicines along with antipsychotic medications to organize his behavior and reduce the level of agitation. I am not sure about his social circumstances. He certainly is not capable of living independently at this point and I doubt that he was living independently prior to this admission. He has almost no insight about his situation. It does appear that unless this is some sort of dramatic change that he is going to require institutional care of some sort. TRANSINT:[id number] Voice Confirmation ID: [id number] DOCUMENT ID: [id number] NITA KOCH MD at 1524 CC: [id number] DICTATION DATE: 12/11/20 1559 TELECOMMUNICATIONS NETWORK PLANNER: 12/12/20 0055 ADM IN [facility] [address] [place] [address]
--- NOTE | 2020-12-12 16:04 | NUR ---
SITTING IN DAVONTE BED QUIETLY. MONITORED CLOSELY.
[2020-12-12 16:43] VITALS: BP 109/62
--- NOTE | 2020-12-12 18:02 | NUR ---
SITTING UP ON SIDE OF DAVONTE BED EATING SUPPER. WILL CONTINUE TO MONITOR FREQUENTLY.
[2020-12-12 20:00] VITALS: BP 121/76
[2020-12-13] VITALS: BP 107/80
--- NOTE | 2020-12-13 00:02 | NUR ---
REC'D. WALKING ROUNDS CHGE OF SHIFT.IN DAVONTE BED. YELLING OPEN THIS THING UP SO I CAN GET OUT AND GO HOME. ATTEMPTS TO REDIRECT UNSUCCESSFUL.WILL CONTINUE TO MONITOR FOR ANY FURTHER CHGES. AND FOLLOW CURRENT PLAN OF CARE.
[2020-12-13 04:00] VITALS: BP 131/74
[2020-12-13 06:37] LABS: BASOPHILS 0.1 % (0-2); HEMATOCRIT 35.5 % (42.0-54.0); HEMOGLOBIN 11.8 g/dL (13.5-17.5); IMMATURE GRANULOCYTES 0.2 % (0-5); LYMPHOCYTE ABS# 3.46 10x3/uL (1.32-3.57); LYMPHOCYTES 37.3 % (15-50); MCH 31.6 pg (26.0-34.0); MCHC 33.2 g/dL (31.0-37.0); MCV 94.9 fL (80.0-100.0); MEAN PLATELET VOLUME 8.7 fL (7.4-10.4); MONOCYTES 6.9 % (2-11); NEUTROPHIL ABS# 4.95 10x3/uL (1.78-5.38); NEUTROPHILS 53.5 % (40-80); PLATELET COUNT 197 10x3/uL (130-400); RBC 3.74 10x6/uL (4.20-6.10); RDW 13.7 % (11.5-14.5); WBC 9.3 10x3/uL (4.8-10.8)
[2020-12-13 06:52] LABS: ALBUMIN 3.5 g/dL (3.4-5.0); ALKALINE PHOSPHATASE 150 U/L (30-120); ALT (SGPT) 25 U/L (10-68); BILIRUBIN - TOTAL 0.33 mg/dL (0.2-1.3); CALC OSMOLALITY 280 mosm/kg (275-300); CALCIUM 8.6 mg/dL (8.5-10.1); CARBON DIOXIDE 24.3 mmol/L (21.0-32.0); CHLORIDE - SERUM 106 mmol/L (98-107); CREATININE - SERUM 0.7 mg/dL (0.6-1.3); GLUCOSE 96 mg/dL (74-106); PHENYTOIN (DILANTIN) < 10.0 ug/mL (10.0-20.0); POTASSIUM - SERUM 3.2 mmol/L (3.5-5.1); PROTEIN - SERUM 6.8 g/dL (6.4-8.2); SODIUM 141 mmol/L (136-145); UREA NITROGEN 13 mg/dL (7-18); VALPROIC ACID (DEPAKOTE) 31.9 ug/mL (50.0-100.0); eGFR NON AFRICAN AMERICAN > 90 mL/min (90-120)
--- NOTE | 2020-12-13 07:26 | NUR ---
I have reviewed this patient and I concur with the Shift Assessment completed by the Licensed Practical Nurse today this shift.
[2020-12-13 08:55] VITALS: BP 128/80
--- NOTE | 2020-12-13 10:00 | NUR ---
DAVONTE BED UNZIPPED AND VELCROED OPEN, PT INSTRUCTED TO CALL IF HE WANTED TO STAND UP, MEAL TRAY SET UP FOR PT, PT PROVIDED WITH SODA TO DRINK PER REQUEST
--- NOTE | 2020-12-13 12:00 | NUR ---
PT HAS BEEN UNRESTRAINED FROM DAVONTE BED FOR 2 HOURS, HAS STOOD AT BEDSIDE MULTIPLE TIMES WITHOUT FIRST CALLING, HAS NOT ATTEMPTED TO WALK ANYWHERE OF NOW, PT CURRENTLY LAYING IN BED RESTING
[2020-12-13 12:47] VITALS: BP 124/67
--- NOTE | 2020-12-13 13:00 | NUR ---
PT LAYING IN BED RESTING WITH EYES CLOSED, DAVONTE BED OPEN, LUNCH AT BEDSIDE
--- NOTE | 2020-12-13 14:08 | NUR ---
BED ALARMED, FOUND PT TRYING TO SCOOT TO THE BOTTOM OF THE BED TO GET OUT, PT COACHED TO GET TURNED AROUND TO SIT ON SIDE OF BED, PT SEES DOORS WHERE THERE ARE NO DOORS, PT STOOD UP AND WAS TRYING TO MOVE THE BED BY HIMSELF, TOLD PT NOT TO DO THAT AND TO SIT DOWN, PT SAT BARELY ON BED, GOT PT TO A SAFE POSITION AND TALKED WITH HIM AGAIN ABOUT STAYING SAFE AND WHAT NEEDS TO HAPPEN IN ORDER FOR HIM TO LEAVE THE HOSPITAL
--- NOTE | 2020-12-13 14:26 | NUR ---
PT DID NOT USE CALL LIGHT, PT STANDING AT SIDE OF BED, PT ARGUEING WITH THIS RN ABOUT WHERE THE BATHROOM WAS, PT WAS GETTING AGITATED, SECOND RN CAME TO ASSIST AND FOLLOWED PT TO THE BATHROOM, PT/OT SAW PT BECOME VERY WOBBLY AND RUSHED IN TO ASSIST PT BACK TO BED. WITH PT BECOMING AGITATED AND UNSTEADY ON HIS FEET, STAFF WAS AGRREEABLE TO SECURING THE ZIPPER ON THE DAVONTE BED AGAIN. TIME DAVONTE BED PUT BACK INTO EFFECT WAS 1425 12/13/20
[2020-12-13 17:07] VITALS: BP 100/72
--- NOTE | 2020-12-13 17:17 | NUR ---
AID OPENED DAVONTE BED APPROX AN HOUR AGO, PT SITTING ON BEDSIDE EATING, BED ALARM GOT TURNED OFF AND PT AMBULATED TO NURSES STATION TO ASK FOR SALT, ACCOMPLANIED PT BACK TO HIS ROOM, SET ALARM AND PROVIDED PT WITH SALT
[2020-12-13 20:00] VITALS: BP 117/76
[2020-12-14 04:00] VITALS: BP 135/85
--- NOTE | 2020-12-14 07:50 | NUR ---
PT SECURE AND SAFE IN DAVONTE BED, PT IS RESTLESS AND YELLING THIS AM, PREVIOUS RN REPORTS PT USED KNIFE TO CUT AN OPENING IN DAVONTE BED LAST NIGHT AND HAD TO RECEIVE A NEW BED
--- NOTE | 2020-12-14 10:00 | NUR ---
DAVONTE BED REMOVED, REGULAR BED PLACED WITH BED ALARM, SITTER OUTSIDE OF DOOR
--- NOTE | 2020-12-14 12:37 | MORECARE ---
CASE MANAGEMENT DISCHARGE SUMMARY PATIENT: YUDITH LÓPEZ UNIT: [id number] ADM DATE: 12/02/20 AGE: 60 : 60 SEX: M ROOM/BED: D.2232 AUTHOR: OBB,DOC PHYSICIAN: REFERRING PHYSICIAN: MAGNO BRANDON MD DATE OF SERVICE: 12/14/20 Case Management Discharge Planning Summary COMMENTS ENTERED DATE: 12/14/20 12:32 CT COMMENT TYPE: Discharge Planning REVIEWER: Lisa Angulo I HAVE SPOKE TO [facility] AND FAXED THEM UPDATES. PLAN TO DC BACK TO THEM FRIDAY MORI BECAUSE HE WILL HAVE BEEN OUT OF RESTRAINTS 48 HOURS. I HAVE ORDERED A RAPID COVID TEST AND THEY ARE CHECKING ON VAN TRANSPORT FOR FRIDAY. CM TO FOLLOW AND ASSIST NEEDED. ENTERED DATE: 12/12/20 9:47 CT COMMENT TYPE: Discharge Planning REVIEWER: arie Angulo SPOKE WITH [facility] AND THIS PATIENT WILL NEED TO BE OUT OF RESTRAINTS FOR 48 HOURS BEFORE THEY WILL ACCEPT HIM BACK. SHELTER CONSULT WAS ORDERED TO SEE IF PATIENT WOULD BE APPROPRIATE FOR SHELTER PRIOT TO DC BACK TO NURSING FACILITY. CM TO FOLLOW AND ASSIST NEEDED. DCP REVIEW SUMMARY ANTICIPATED D/C DATE: EXPECTED LOS : CASE STATUS: DCP Initiated INITIAL REVIEW: 12/05/2020 INITIAL REVIEWER: Lisa Angulo FINAL DISCHARGE DISPOSITION: : FINAL REVIEWER: FINAL REVIEW DATE: DCP Focus Questions & Answers - Added on: QUESTION: ANSWER : PROVIDER NETWORKING REVIEW DATE: 12/11/2020 SERVICE TYPE: [facility] Facility REVIEWER: Lisa Angulo PROVIDER: FINAL PROVIDER? : FINAL DATE/TIME: CT REVIEW DATE: 12/13/2020 SERVICE TYPE: Psychiatric Inpatient REVIEWER: Lisa Angulo PROVIDER: FINAL PROVIDER? : FINAL DATE/TIME: CT PATIENT: YUDITH LÓPEZ ENCOUNTER: [id number] MEDICAL RECORD#: [id number] ADMISSION DATE: 12/02/2020 DISCHARGE DATE: ATTENDING MD: : AGE: 60 MARITAL STATUS: S DC PLAN ID: [id number] FACILITY: [facility] PRINTED ON: 12/14/20 12:37 CT All edits/amendments must be made on the electronic document DICTATION DATE: 12/14/201236 GRINDER SET UP OPERATOR THREAD: ANGELY 12/14/201236 RPT#: [id number] DC DATE: STATUS: ADM IN [facility] [address] [place] [address] END OF REPORT
--- NOTE | 2020-12-14 14:44 | NUR ---
OT NOTE: DAVONTE BED WAS REMOVED THIS AM.. PT ABLE TO GET IN AND OUT OF BED; AMB IN ROOM AND TO BATHROOM WITH SBA. CUES FOR REDIRECTION FOR ADLS. REMAINS CONFUSED AND DISORIENTED. CONT WITH LE WEAKNESS, HOWEVER, NOT APPROPRIATE FOR REHAB DUE TO CONFUSION. PRITI LEYVA, OTR/L
[2020-12-14 16:09] VITALS: BP 110/68
[2020-12-14 19:38] LABS: SARS-CoV-2 ANTIGEN NEGATIVE- SARS-COV-2 (NEGATIVE)
[2020-12-14 20:00] VITALS: BP 111/73
[2020-12-15] VITALS: BP 120/71
--- NOTE | 2020-12-15 03:23 | NUR ---
ASSESSED AT THE BEGINNING OF THE SHIFT. PT IS ALERT AND CONFUSED. HE WAS UPSET BECAUSE HE HAS NO MORE CHEWING TOBACCO. HE HAS FREQUENTLY GOTTEN OUT OF THE BED BECAUSE OF THIS. HE FORGETS THAT WE HAVE EXPLAINED MULTIPLE TIMES THAT WE DO NOT HAVE ANY, NOR CAN WE GO BUY HIM SOME. HE HAS A SITTER WHO IS STAYING AT THE BEDSIDE TO MAKE SURE HE DOSENT FALL. AFTER ABOUT 2200 AND HE HAD TAKEN ALL HIS MEDS HE DID FINALLY FALL ASLEEP. HE HAS REMEINED ASLEEP SINCE THAT TIME.
[2020-12-15 04:00] VITALS: BP 103/75
[2020-12-15 12:21] VITALS: BP 103/67
--- NOTE | 2020-12-15 16:27 | NUR ---
PATIENT BEHAVIOR BECAME MORE INTENSE AND COULD NOT BE CONTROLED WITHOUT GIVING PRN MEDICATION ORDERED.
--- NOTE | 2020-12-15 17:02 | NUR ---
OT NOTE: PT COMPLETED BED MOB AND SIT TO STAND WITH SBA. PT EXHIBITED DECREASED SAFETY AWARENESS. PT IS IMPULSIVE. PT COMPLETED SELF FEEDING TASKS WITH SPV. [phone] THANK YOU,PAO BIRD
[2020-12-15 20:07] VITALS: BP 157/92
--- NOTE | 2020-12-16 00:50 | NUR ---
ASSESSED AT THE BEGINNING OF THE SHIFT. PT IS ALERT AND CONFUSED, WILL FOLLOW SOME INSTRUCTIONS AND NOT OTHERS. HE HAS BEEN UP PACING IN ROOM MOST OF THE EVENING SHIFT, BUT WAS COOPERATIVE WITH TAKING HIS MEDS. WE HAVE A SITTER AT THE DOOR WATCHING TO MAKE SURE HE IS SAFE AND DOSENT ATTEMPT TO LEAVE. LONG YOU TALK WITH KINDNESS TO HIM HE RESPONDS WELL BUT IS STAFF IS CRUZITO OR DEMANDING HE WILL BECOME UPSET. LATER WHEN HE COULD NOT SLEEP WE ASKED IF HE WANTED SOMETHING TO HELP HIM REST HE SAID YES AND WAS GIVEN GEODON ORDERED PRN. AT THIS TIME HE IS RESTING QUIETLY ASLEEP.
--- NOTE | 2020-12-16 05:04 | NUR ---
PT WOKE UP INCONT OF URINE AND NEEDING BED CHANGED. BED WAS STRIPPED AND CLEANED THEN NEW LINENS APPLIED. HE WAS IN BATHROOM AND ALL CLOTHES WERE STRIPPED OFF AND NEW GOWN APPLIED. HE DID REFUSED TO LET US CLEAN HIM UP, SAYING HE WAS TOO SLEEPY AND WANTED TO GO BACK TO SLEEP. HE WAS GOING TO GET ANGRY IF WE PUSHED HIM SO WE LET HIM GO TO BED.
--- NOTE | 2020-12-16 08:05 | NUR ---
RESTING IN BED, EYES CLOSED, NO DISTRESS NOTED, SITTER AT DOORWAY, CONT TO MONITOR SAFETY
--- NOTE | 2020-12-16 09:18 | NUR ---
PT RAISING HIS VOICE AT STAFF, STATES HE WONT TAKE HIS MEDS TILL HE GETS SOME DIRT, WILL GIVE GEODON WHEN AVAILABLE
--- NOTE | 2020-12-16 09:44 | NUR ---
SECURITY ON THE UNIT, PT THREATENING THE SITTER, STATES HE IS LEAVING TO GET DIRT AND NO ONE CAN STOP HIM, TOOK JODIE OLEA WITH EASE
--- NOTE | 2020-12-16 11:24 | NUR ---
SECURITY CALLED AGAIN, PT YELLING THAT HE WANTS DIRT, DID TAKE PO MEDS, WILL SEE IF TIME FOR EMMIE
--- NOTE | 2020-12-16 12:25 | NUR ---
PT CHOAKED ON LUNCH, ZENON PERFORMED, PT COUGHED UP SQUASH AND THEN CONT TO DROOL AND THEN THREW UP NOODLES AND MEAT, DR TAN AWARE, NEW ORDERS NOTED
[2020-12-16 12:43] VITALS: BP 134/89
--- NOTE | 2020-12-16 12:43 | NUR ---
CXR DONE, CONT TO MONITOR PT
--- NOTE | 2020-12-16 18:41 | NUR ---
MEDICATED FOR AGITATION, CONT TO MONITOR, UP PACING IN ROOM WANTING "DIRT"
--- NOTE | 2020-12-16 20:30 | NUR ---
UP IN ROOM. UNSTEADY GAIT. ORITENTED TO NAME ONLY. NO COMPLAINTS OF DISCOMFORT. CL IN REACH
[2020-12-16 20:38] VITALS: BP 159/78
--- NOTE | 2020-12-17 05:12 | NUR ---
I have reviewed this patient and I concur with the Shift Assessment completed by the Licensed Practical Nurse today this shift.
[2020-12-17 05:26] VITALS: BP 117/69
--- NOTE | 2020-12-17 07:57 | NUR ---
RESTING IN BED, NO DISTRESS NOTED, SITTER AT BEDSIDE, CONT TO MONITOR
[2020-12-17 08:28] VITALS: BP 121/75
[2020-12-17] MEDS ORDERED: NICODERM CQ1 EAC3 TRANSDERM (10:47)
[2020-12-17] MEDS ORDERED: XIFAXAN200 MG PO (10:47)
[2020-12-17] MEDS ORDERED: GEODON20 MG PO (10:48)
[2020-12-17] MEDS ORDERED: KEPPRA500 MG PO (10:49)
--- NOTE | 2020-12-17 11:12 | MORECARE ---
CASE MANAGEMENT DISCHARGE SUMMARY PATIENT: YUDITH LÓPEZ UNIT: [id number] ADM DATE: 12/02/20 AGE: 60 : 60 SEX: M ROOM/BED: D.2232 AUTHOR: BOB,DOC PHYSICIAN: REFERRING PHYSICIAN: MAGNO BRANDON MD DATE OF SERVICE: 12/17/20 Case Management Discharge Planning Summary CT Patient Name: YUDITH LÓPEZ Attending MD : GEOFFREY- Medical Record: [id number] Encounter : [id number] Facility : [address] [place] [address] Medical Admission Date : 115:17 Center Discharge Date : [address] [place] [address] Date of : DC Plan ID : [id number] Age/Sex/Martia : 60/ M/S Printed on : 12/17/20 11:11 CT DCP Review Details Anticipated D/C: Expected LOS : Case Status : INITIATED - Initial Reviewe: [id number] - Lisa Angulo Initial Review: 12/05/2020 Planned Disposi: 03 - Discharged/Trans to SNF with Medicare Certification in Anticipation of Skilled Care Final Discharge: - Final Reviewer : : Final Review : Comments CT Entered Date Type Reviewer 12/17/20 10:58 CT Discharge Planning Natalio Santoro Comment Patient is currently 1-1 with sitter. Patient is no longer in rikki bed possibly since 14 December. Phone call to [facility]. Spoke with Rachele. Rachele stated that it is not likely that the patient can return to the [place] today. Inquired about COVID testing. Rachele stated that she was unsure of requirements for return to [place]. CM team notified Dr. Patel of conversation with [place]. Patient likely to DC in am. CM will continue to follow and will assist as needed with dc plans/needs. 12/14/20 12:32 CT Discharge Planning Lisa Angulo Comment I HAVE SPOKE TO [facility] AND FAXED THEM UPDATES. PLAN TO DC BACK TO THEM FRIDAY MORI BECAUSE HE WILL HAVE BEEN OUT OF RESTRAINTS 48 HOURS. I HAVE ORDERED A RAPID COVID TEST AND THEY ARE CHECKING ON VAN TRANSPORT FOR FRIDAY. CM TO FOLLOW AND ASSIST NEEDED. 12/12/20 9:47 CT Discharge Planning Lisa Angulo Comment SPOKE WITH [facility] AND THIS PATIENT WILL NEED TO BE OUT OF RESTRAINTS FOR 48 HOURS BEFORE THEY WILL ACCEPT HIM BACK. FPC CONSULT WAS ORDERED TO SEE IF PATIENT WOULD BE APPROPRIATE FOR FPC PRIOT TO DC BACK TO NURSING FACILITY. CM TO FOLLOW AND ASSIST NEEDED. DCP Focus Questions & Answers [facility] YUDITH LÓPEZ MR#: [id number] /Age/Sex/Imjbwq75-Hpu-37 /60/M /S Attending Physician Name: [id number] Patient Account:[id number] [facility] Page -1 of 1 All edits/amendments must be made on the electronic document DICTATION DATE: 12/17/20 1111 AUDITOR APPRAISER: ANGELY 12/17/20 1111 RPT#: [id number] DC DATE: STATUS: ADM IN [facility] [address] [place] [address] END OF REPORT
--- NOTE | 2020-12-17 11:24 | MORECARE ---
CASE MANAGEMENT DISCHARGE SUMMARY PATIENT: YUDITH LÓPEZ UNIT: [id number] ADM DATE: 12/02/20 AGE: 60 : 60 SEX: M ROOM/BED: D.2232 AUTHOR: BOB,DOC PHYSICIAN: REFERRING PHYSICIAN: MAGNO BRANDON MD DATE OF SERVICE: 12/17/20 Case Management Discharge Planning Summary CT Patient Name: YUDITH LÓPEZ Attending MD : GEOFFREY- Medical Record: [id number] Encounter : [id number] Facility : [address] [place] [address] Medical Admission Date : 115:17 Center Discharge Date : [address] [place] [address] Date of : DC Plan ID : [id number] Age/Sex/Martia : 60/ M/S Printed on : 12/17/20 11:23 CT DCP Review Details Anticipated D/C: Expected LOS : Case Status : INITIATED - Initial Reviewe: [id number] - Lisa Angulo Initial Review: 12/05/2020 Planned Disposi: 03 - Discharged/Trans to SNF with Medicare Certification in Anticipation of Skilled Care Final Discharge: - Final Reviewer : : Final Review : Comments CT Entered Date Type Reviewer 12/17/20 11:18 CT Discharge Planning Winnie Muñoz Comment CM called [facility] and spoke with Chacha, transferred to [facility] about discharging patient back to the prison today. Rachele states she will give the INSERTER PROMOTIONAL ITEM ([employer]) my phone number to call me concerning discharge. Awaiting call back from Lyly. 12/17/20 10:58 CT Discharge Planning Natalio Santoro Comment Patient is currently 1-1 with sitter. Patient is no longer in rikki bed possibly since 14 December. Phone call to [facility]. Spoke with Rachele. Rachele stated that it is not likely that the patient can return to the [place] today. Inquired about COVID testing. Rachele stated that she was unsure of requirements for return to [place]. CM team notified Dr. Patel of conversation with [place]. Patient likely to DC in am. CM will continue to follow and will assist as needed with dc plans/needs. 12/14/20 12:32 CT Discharge Planning Lisa Angulo Comment I HAVE SPOKE TO [facility] AND FAXED THEM UPDATES. PLAN TO DC BACK TO THEM FRIDAY MORI BECAUSE HE WILL HAVE BEEN OUT OF RESTRAINTS 48 HOURS. I HAVE ORDERED A RAPID COVID TEST AND THEY ARE CHECKING ON VAN TRANSPORT FOR FRIDAY. CM TO FOLLOW AND ASSIST NEEDED. 12/12/20 9:47 CT Discharge Planning Lisa Angulo Comment SPOKE WITH [facility] AND THIS PATIENT WILL NEED TO BE OUT OF RESTRAINTS FOR 48 HOURS BEFORE THEY WILL ACCEPT HIM BACK. CHCF CONSULT WAS ORDERED TO SEE IF PATIENT WOULD BE APPROPRIATE FOR [facility] PRIOT TO DC BACK TO NURSING FACILITY. CM TO FOLLOW AND ASSIST NEEDED. DCP Focus Questions & Answers [facility] YUDITH LÓPEZ MR#: [id number] /Age/Sex/Qzdfja03-Exz-51 /60/M /S Attending Physician Name: [id number] Patient Account:[id number] [facility] Page -1 of 1 All edits/amendments must be made on the electronic document DICTATION DATE: 12/17/201122 SAUSAGE TIER: ANGELY 12/17/20 112 RPT#: [id number] DC DATE: STATUS: ADM IN [facility] [address] [place] [address] END OF REPORT
[2020-12-17 12:01] VITALS: BP 125/76
--- NOTE | 2020-12-17 12:22 | MORECARE ---
CASE MANAGEMENT DISCHARGE SUMMARY PATIENT: YUDITH LÓPEZ UNIT: [id number] ADM DATE: 12/02/20 AGE: 60 : 60 SEX: M ROOM/BED: D.2232 AUTHOR: BOB,DOC PHYSICIAN: REFERRING PHYSICIAN: MAGNO BRANDON MD DATE OF SERVICE: 12/17/20 Case Management Discharge Planning Summary CT Patient Name: YUDITH LÓPEZ Attending MD : GEOFFREY- Medical Record: [id number] Encounter : [id number] Facility : [address] [place] [address] Medical Admission Date : 115:17 Center Discharge Date : [address] [place] [address] Date of : DC Plan ID : [id number] Age/Sex/Martia : 60/ M/S Printed on : 12/17/20 12:21 CT DCP Review Details Anticipated D/C: Expected LOS : Case Status : INITIATED - Initial Reviewe: [id number] Amber Angulo Initial Review: 12/05/2020 Planned Disposi: 03 - Discharged/Trans to SNF with Medicare Certification in Anticipation of Skilled Care Final Discharge: - Final Reviewer : : Final Review : Comments CT Entered Date Type Reviewer 12/17/20 12:07 CT Discharge Planning Winnie Muñoz Comment CM received call back from [facility], Lyly. She states they will accept back to facility today and will belt picker at 2:30. CM informed Timothy and nurse given number to call report. DC summary, meds and clinical faxed to [facility]. I called number on file for patient's brother and left a message that family member was returning to [facility]. Patient to discharge to LTC bed today. 12/17/20 11:18 CT Discharge Planning Winnie Muñoz Comment CM called [facility] and spoke with Chacha, transferred to [facility] about discharging patient back to the senior care today. [facility] states she will give the DEHYDRATION PLANT OPERATOR (Lyly) my phone number to call me concerning discharge. Awaiting call back from Lyly. 12/17/20 10:58 CT Discharge Planning Natalio Santoro Comment Patient is currently 1-1 with sitter. Patient is no longer in rikki bed possibly since 14 December. Phone call to [facility]. Spoke with Rachele. Rachele stated that it is not likely that the patient can return to the [place] today. Inquired about COVID testing. Rachele stated that she was unsure of requirements for return to [place]. CM team notified Dr. Patel of conversation with NH. Patient likely to DC in am. CM will continue to follow and will assist as needed with dc plans/needs. 12/14/20 12:32 CT Discharge Planning Lisa Angulo Comment I HAVE SPOKE TO [facility] AND FAXED THEM UPDATES. PLAN TO DC BACK TO THEM Friday BECAUSE HE WILL HAVE BEEN OUT OF RESTRAINTS 48 HOURS. I HAVE ORDERED A RAPID COVID TEST AND THEY ARE CHECKING ON VAN TRANSPORT FOR FRIDAY. CM TO FOLLOW AND ASSIST NEEDED. 12/12/20 9:47 CT Discharge Planning Lisa Angulo Comment SPOKE WITH [facility] AND THIS PATIENT WILL NEED TO BE OUT OF RESTRAINTS FOR 48 HOURS BEFORE THEY WILL ACCEPT HIM BACK. ALF CONSULT WAS ORDERED TO SEE IF PATIENT WOULD BE APPROPRIATE FOR ALF PRIOT TO DC BACK TO NURSING FACILITY. CM TO FOLLOW AND ASSIST NEEDED. DCP Focus Questions & Answers [facility] YUDITH LÓPEZ MR#: [id number] /Age/Sex/Nrhonn62-Qns-90 /60/M /S Attending Physician Name: [id number] Patient Account:[id number] [facility] Page -1 of 1 All edits/amendments must be made on the electronic document DICTATION DATE: 12/17/20 122 WEDDING MAKEUP ARTIST: ANGELY 12/17/20 1221 RPT#: [id number] DC DATE: STATUS: ADM IN [facility] [address] [place] [address] END OF REPORT
--- NOTE | 2020-12-17 13:54 | NUR ---
REPORT CALLED TO WENCESLAO AT [facility]
--- NOTE | 2020-12-17 14:56 | NUR ---
[facility] HERE TO GET PT, COPIES OF PAPERS SENT WITH PT
--- NOTE | 2020-12-17 15:04 | MORECARE ---
CASE MANAGEMENT DISCHARGE SUMMARY PATIENT: YUDITH LÓPEZ UNIT: [id number] ADM DATE: 12/02/20 AGE: 60 : 60 SEX: M ROOM/BED: D.2232 AUTHOR: BOB,DOC PHYSICIAN: REFERRING PHYSICIAN: MAGNO BRANDON MD DATE OF SERVICE: 12/17/20 Case Management Discharge Planning Summary CT Patient Name: YUDITH LÓPEZ Attending MD : GEOFFREY- Medical Record: [id number] Encounter : [id number] Facility : [address] [place] [address] Medical Admission Date : 115:17 Center Discharge Date : 12/17/[address] [place] [id number] Date of : DC Plan ID : [id number] Age/Sex/Martia : 60/ M/S Printed on : 12/17/20 15:03 CT DCP Review Details Anticipated D/C: Expected LOS : Case Status : INITIATED - Initial Reviewe: [id number] Amber Angulo Initial Review: 12/05/2020 Planned Disposi: 03 - Discharged/Trans to SNF with Medicare Certification in Anticipation of Skilled Care Final Discharge: - Final Reviewer : : Final Review : Comments CT Entered Date Type Reviewer 12/17/20 12:07 CT Discharge Planning Winnie Muñoz Comment CM received call back from [facility], Lyly. She states they will accept back to facility today and will pick out hand at 2:30. CM informed Timothy and nurse given number to call report. DC summary, meds and clinical faxed to [facility]. I called number on file for patient's brother and left a message that family member was returning to [facility]. Patient to discharge to LTC bed today. 12/17/20 11:18 CT Discharge Planning Winnie Muñoz Comment CM called [facility] and spoke with Chacha, transferred to [facility] about discharging patient back to the senior care today. [facility] states she will give the MANAGER OF WAREHOUSE (Lyly) my phone number to call me concerning discharge. Awaiting call back from Lyly. 12/17/20 10:58 CT Discharge Planning Natalio Santoro Comment Patient is currently 1-1 with sitter. Patient is no longer in rikki bed possibly since 14 December. Phone call to [facility]. Spoke with Rachele. Rachele stated that it is not likely that the patient can return to the [place] today. Inquired about COVID testing. Rachele stated that she was unsure of requirements for return to [place]. CM team notified Dr. Patel of conversation with NH. Patient likely to DC in am. CM will continue to follow and will assist as needed with dc plans/needs. 12/14/20 12:32 CT Discharge Planning Lisa Angulo Comment I HAVE SPOKE TO [facility] AND FAXED THEM UPDATES. PLAN TO DC BACK TO THEM FRIDAY MORI BECAUSE HE WILL HAVE BEEN OUT OF RESTRAINTS 48 HOURS. I HAVE ORDERED A RAPID COVID TEST AND THEY ARE CHECKING ON VAN TRANSPORT FOR FRIDAY. CM TO FOLLOW AND ASSIST NEEDED. 12/12/20 9:47 CT Discharge Planning Lisa Angulo Comment SPOKE WITH [facility] AND THIS PATIENT WILL NEED TO BE OUT OF RESTRAINTS FOR 48 HOURS BEFORE THEY WILL ACCEPT HIM BACK. MCC CONSULT WAS ORDERED TO SEE IF PATIENT WOULD BE APPROPRIATE FOR MCC PRIOT TO DC BACK TO NURSING FACILITY. CM TO FOLLOW AND ASSIST NEEDED. DCP Focus Questions & Answers [facility] YUDITH LÓPEZ MR#: [id number] /Age/Sex/Uohxan30-Axy-31 /60/M /S Attending Physician Name: [id number] Patient Account:[id number] [facility] Page -1 of 1 All edits/amendments must be made on the electronic document DICTATION DATE: 12/17/20 1503 ICER MACHINE: ANGELY 12/17/20 1503 RPT#: [id number] DC DATE:12/17/20 STATUS: DIS IN [facility] [address] [place] [address] END OF REPORT
[2020-12-18] MEDS ORDERED: BENZTROPINE MESY1 MG PO (10:06)
[2020-12-18] MEDS ORDERED: THORAZINE50 MG PO (10:07)
[2020-12-18] MEDS ORDERED: CARBATROL300 MG PO (10:07)
[2020-12-18] MEDS ORDERED: CYMBALTA30 MG PO (10:07)
[2020-12-18] MEDS ORDERED: LAMICTAL100 MG PO (10:08)
[2020-12-18] MEDS ORDERED: VIMPAT200 MG PO (10:08)
[2020-12-18] MEDS ORDERED: MILK OF MAGNESI30 ML PO (10:08)
[2020-12-18] MEDS ORDERED: TOPAMAX200 MG PO (10:09)
[2020-12-18] MEDS ORDERED: SEROQUEL400 MG PO (10:09)
--- NOTE | 2020-12-18 14:04 | PN ---
PATIENT:YUDITH LÓPEZ MEDICAL RECORD: [id number] LOCATION:[facility] [address] ADMISSION DATE: 12/02/20 PROGRESS NOTE DATE OF SERVICE: 12/14/2020 SUBJECTIVE: The patient's case was discussed with staff. He has no new complaint. OBJECTIVE: The patient is significantly disorganized with poor insight about his situation. He is not openly aggressive, but clearly impaired. ASSESSMENT: 1. Traumatic brain injury. 2. Delirium. PLAN: I am not sure what the patient's baseline level of functioning is, but I am sure it is not far from what we are currently seeing. He is in need of chcf care. I am going to increase the dose of his Depakote secondary to a subtherapeutic level and we will monitor his behaviors. He is again not capable of living independently at this point. TRANSINT:[id number] Voice Confirmation ID: [id number] DOCUMENT ID: [id number] NITA KOCH MD at 1404 CC: [id number] DICTATION DATE: 12/14/201737 POUND ATTENDANT: 12/14/20 174 DIS IN 12/17/20 [place] [id number] [place] [id number]
--- NOTE | 2020-12-18 16:41 | MORECARE ---
CASE MANAGEMENT DISCHARGE SUMMARY PATIENT: YUDITH LÓPEZ UNIT: [id number] ADM DATE: 12/02/20 AGE: 60 : 60 SEX: M ROOM/BED: D.2232 AUTHOR: BOB,DOC PHYSICIAN: REFERRING PHYSICIAN: MAGNO BRANDON MD DATE OF SERVICE: 12/18/20 Case Management Discharge Planning Summary CT Patient Name: YUDITH LÓPEZ Attending MD : GEOFFREY- Medical Record: [id number] Encounter : [id number] Facility : [address] [place] [address] Medical Admission Date : 115:17 Center Discharge Date : 12/17/[address] [place] [address] Date of : DC Plan ID : [id number] Age/Sex/Martia : 60/ M/S Printed on : 12/18/20 16:40 CT DCP Review Details Anticipated D/C: Expected LOS : Case Status : INITIATED - Initial Reviewe: [id number] Amber Angulo Initial Review: 12/05/2020 Planned Disposi: 03 - Discharged/Trans to SNF with Medicare Certification in Anticipation of Skilled Care Final Discharge: - Final Reviewer : : Final Review : Comments CT Entered Date Type Reviewer 12/17/20 12:07 CT Discharge Planning Winnie Muñoz Comment CM received call back from [facility], Lyly. She states they will accept back to facility today and will cloth picker at 2:30. CM informed Timothy and nurse given number to call report. DC summary, meds and clinical faxed to [facility]. I called number on file for patient's brother and left a message that family member was returning to [facility]. Patient to discharge to LTC bed today. 12/17/20 11:18 CT Discharge Planning Winnie Muñoz Comment CM called [facility] and spoke with Chacha, transferred to [facility]. [facility] states she will give the RESTAURANT FRONT MANAGER (Lyly) my phone number to call me concerning discharge. Awaiting call back from Lyly. 12/17/20 10:58 CT Discharge Planning Natalio Santoro Comment Patient is currently 1-1 with sitter. Patient is no longer in rikki bed possibly since 14 December. Phone call to [facility]. Spoke with Rachele. Rachele stated that it is not likely that the patient can return to the [place] today. Inquired about COVID testing. Rachele stated that she was unsure of requirements for return to [place]. CM team notified Dr. Patel of conversation with NH. Patient likely to DC in am. CM will continue to follow and will assist as needed with dc plans/needs. 12/14/20 12:32 CT Discharge Planning Lisa Angulo Comment I HAVE SPOKE TO [facility] AND FAXED THEM UPDATES. PLAN TO DC BACK TO THEM FRIDAY MORI BECAUSE HE WILL HAVE BEEN OUT OF RESTRAINTS 48 HOURS. I HAVE ORDERED A RAPID COVID TEST AND THEY ARE CHECKING ON VAN TRANSPORT FOR FRIDAY. CM TO FOLLOW AND ASSIST NEEDED. 12/12/20 9:47 CT Discharge Planning Lisa Angulo Comment SPOKE WITH [facility] AND THIS PATIENT WILL NEED TO BE OUT OF RESTRAINTS FOR 48 HOURS BEFORE THEY WILL ACCEPT HIM BACK. LONGTERM CONSULT WAS ORDERED TO SEE IF PATIENT WOULD BE APPROPRIATE FOR LONGTERM PRIOT TO DC BACK TO NURSING FACILITY. CM TO FOLLOW AND ASSIST NEEDED. DCP Focus Questions & Answers [facility] YUDITH LÓPEZ MR#: [id number] /Age/Sex/Zysujj45-Zoy-04 /60/M /S Attending Physician Name: [id number] Patient Account:[id number] [facility] Page -1 of 1 All edits/amendments must be made on the electronic document DICTATION DATE: 12/18/20 1640 CARTON MARKER MACHINE: ANGELY 12/18/20 1640 RPT#: [id number] DC DATE:12/17/20 STATUS: DIS IN [facility] [address] [place] [address] END OF REPORT
== END 2020-12-17 14:57 | DRG 948 ==
LOC: D.ER 13:11 → D.EDHOLD 18:57 → D.MS 18:57 → OBSVTIME 18:57 → D.MS 20:01
PROVIDERS: Emergency Medicine; Legal Medicine; ADMIT Emergency Medicine; ATTEND Emergency Medicine
DX: R41.82 Altered mental status, unspecified (principal); E72.20 Disorder of urea cycle metabolism, unspecified; F03.91 Unspecified dementia, unspecified severity, with behavioral disturbance; G40.909 Epilepsy, unspecified, not intractable, without status epilepticus; T42.0X5A Adverse effect of hydantoin derivatives, initial encounter; W19.XXXA Unspecified fall, initial encounter; Z91.81 History of falling; J44.9 Chronic obstructive pulmonary disease, unspecified; S00.83XA Contusion of other part of head, initial encounter; Z87.820 Personal history of traumatic brain injury

== ENCOUNTER 2020-12-18 09:28 | Emergency (ER) | payer MEDICARE ==
[~2020-12-18] VITALS: Ht 180.3 cm; Wt 72.7 kg
[~2020-12-18 09:28] MED LIST changes: +GEODON20 MG PO; +NICODERM CQ1 EAC3 TRANSDERM; +XIFAXAN200 MG PO
[2020-12-18 09:37] VITALS: BP 149/85; Ht 180.3 cm; Wt 72.7 kg
[2020-12-18] MEDS ORDERED: BENZTROPINE MESY1 MG PO (10:06)
[2020-12-18] MEDS ORDERED: CARBATROL300 MG PO (10:07)
[2020-12-18] MEDS ORDERED: THORAZINE50 MG PO (10:07)
[2020-12-18] MEDS ORDERED: CYMBALTA30 MG PO (10:07)
[2020-12-18] MEDS ORDERED: VIMPAT200 MG PO (10:08)
[2020-12-18] MEDS ORDERED: LAMICTAL100 MG PO (10:08)
[2020-12-18] MEDS ORDERED: MILK OF MAGNESI30 ML PO (10:08)
[2020-12-18] MEDS ORDERED: SEROQUEL400 MG PO (10:09)
[2020-12-18] MEDS ORDERED: TOPAMAX200 MG PO (10:09)
[2020-12-18 10:13] LABS: BILIRUBIN NEGATIVE (NEGATIVE); KETONE NEGATIVE (NEGATIVE); NITRITE NEGATIVE (NEGATIVE); UROBILINOGEN NORMAL mg/dL (< 2)
[2020-12-18 10:23] LABS: BASOPHILS 0.1 % (0-2); EOSINOPHILS 2.6 % (0-7); HEMATOCRIT 37.3 % (42.0-54.0); HEMOGLOBIN 12.3 g/dL (13.5-17.5); IMMATURE GRANULOCYTES 0.3 % (0-5); LYMPHOCYTE ABS# 3.33 10x3/uL (1.32-3.57); LYMPHOCYTES 43.4 % (15-50); MCH 31.5 pg (26.0-34.0); MCV 95.6 fL (80.0-100.0); MEAN PLATELET VOLUME 8.8 fL (7.4-10.4); MONOCYTES 7.7 % (2-11); NEUTROPHIL ABS# 3.53 10x3/uL (1.78-5.38); NEUTROPHILS 45.9 % (40-80); PLATELET COUNT 182 10x3/uL (130-400); RDW 13.4 % (11.5-14.5); WBC 7.7 10x3/uL (4.8-10.8)
[2020-12-18 10:29] LABS: APTT 27.8 SECONDS (22.8-39.4); INR 1.12 (0.85-1.17); PROTIME 13.4 SECONDS (11.6-15.0)
[2020-12-18 10:36] LABS: CALC OSMOLALITY 274 mosm/kg (275-300); CALCIUM 9.1 mg/dL (8.5-10.1); CARBON DIOXIDE 25.6 mmol/L (21.0-32.0); CHLORIDE - SERUM 104 mmol/L (98-107); CREATININE - SERUM 0.8 mg/dL (0.6-1.3); GLUCOSE 102 mg/dL (74-106); POTASSIUM - SERUM 3.5 mmol/L (3.5-5.1); SODIUM 138 mmol/L (136-145); UREA NITROGEN 10 mg/dL (7-18); eGFR NON AFRICAN AMERICAN > 90 mL/min (90-120)
[2020-12-18 10:44] LABS: ALBUMIN 3.8 g/dL (3.4-5.0); ALKALINE PHOSPHATASE 146 U/L (30-120); ALT (SGPT) 19 U/L (10-68); BILIRUBIN - TOTAL 0.22 mg/dL (0.2-1.3); CKMB 1.7 U/L (0.0-3.6); CREATINE KINASE 96 UL (21-232); PROTEIN - SERUM 7.4 g/dL (6.4-8.2); TROPONIN-I < 0.017 ng/mL (0.000-0.060)
== END 2020-12-18 13:45 | disposition home or self-care (01) ==
LOC: D.ER 09:28
PROVIDERS: Emergency Medicine
DX: R41.82 Altered mental status, unspecified (principal); R47.81 Slurred speech; J44.9 Chronic obstructive pulmonary disease, unspecified

== ENCOUNTER 2020-12-19 12:21 | Emergency (ER) | payer MEDICARE ==
[~2020-12-19] VITALS: Ht 180.3 cm; Wt 84.1 kg
[~2020-12-19 12:21] MED LIST changes: +BENZTROPINE MESY1 MG PO; +CARBATROL300 MG PO; +CYMBALTA30 MG PO; +LAMICTAL100 MG PO; +MILK OF MAGNESI30 ML PO; +SEROQUEL400 MG PO; +THORAZINE50 MG PO; +TOPAMAX200 MG PO; +VIMPAT200 MG PO
[2020-12-19 12:24] VITALS: Ht 180.3 cm; Wt 84.1 kg
[2020-12-19 13:43] LABS: BASOPHILS 0.2 % (0-2); EOSINOPHILS 2.5 % (0-7); HEMATOCRIT 41.7 % (42.0-54.0); HEMOGLOBIN 14.2 g/dL (13.5-17.5); IMMATURE GRANULOCYTES 0.2 % (0-5); LYMPHOCYTE ABS# 3.73 10x3/uL (1.32-3.57); LYMPHOCYTES 44.4 % (15-50); MCH 32.6 pg (26.0-34.0); MCHC 34.1 g/dL (31.0-37.0); MCV 95.6 fL (80.0-100.0); MEAN PLATELET VOLUME 9.5 fL (7.4-10.4); MONOCYTES 8.1 % (2-11); NEUTROPHIL ABS# 3.74 10x3/uL (1.78-5.38); NEUTROPHILS 44.6 % (40-80); PLATELET COUNT 109 10x3/uL (130-400); RBC 4.36 10x6/uL (4.20-6.10); RDW 13.6 % (11.5-14.5); WBC 8.4 10x3/uL (4.8-10.8)
[2020-12-19 13:49] LABS: CALC OSMOLALITY 275 mosm/kg (275-300); CALCIUM 8.9 mg/dL (8.5-10.1); CARBON DIOXIDE 22.9 mmol/L (21.0-32.0); CHLORIDE - SERUM 106 mmol/L (98-107); GLUCOSE 96 mg/dL (74-106); POTASSIUM - SERUM 3.5 mmol/L (3.5-5.1); SODIUM 138 mmol/L (136-145); UREA NITROGEN 12 mg/dL (7-18); eGFR NON AFRICAN AMERICAN 81 mL/min (90-120)
[2020-12-19 14:07] LABS: ALBUMIN 3.6 g/dL (3.4-5.0); ALKALINE PHOSPHATASE 144 U/L (30-120); ALT (SGPT) 15 U/L (10-68); BILIRUBIN - TOTAL 0.24 mg/dL (0.2-1.3); CKMB 6.7 U/L (0.0-3.6); CREATINE KINASE 205 UL (21-232); MAGNESIUM - SERUM 2.1 mg/dL (1.8-2.4); PROTEIN - SERUM 7.2 g/dL (6.4-8.2); THYROID STIMULATING HORMONE 2.09 uIU/mL (0.36-3.74); TROPONIN-I < 0.017 ng/mL (0.000-0.060)
[2020-12-19 14:12] LABS: APTT 22.5 SECONDS (22.8-39.4); INR 1.17 (0.85-1.17); PROTIME 13.8 SECONDS (11.6-15.0)
[2020-12-19 14:49] LABS: UDS - AMPHET NEGATIVE QUAL (NEGATIVE); UDS - BARB NEGATIVE QUAL (NEGATIVE); UDS - BENZO NEGATIVE QUAL (NEGATIVE); UDS - COCAINE NEGATIVE QUAL (NEGATIVE); UDS - OPIATE NEGATIVE QUAL (NEGATIVE); UDS - PCP NEGATIVE QUAL (NEGATIVE); UDS - THC NEGATIVE QUAL (NEGATIVE)
[2020-12-19 15:06] LABS: BILIRUBIN NEGATIVE (NEGATIVE); KETONE NEGATIVE (NEGATIVE); NITRITE NEGATIVE (NEGATIVE); UROBILINOGEN NORMAL mg/dL (< 2)
[2020-12-19 17:16] VITALS: BP 140/78
== END 2020-12-19 17:16 ==
LOC: D.ER 12:21
PROVIDERS: Emergency Medicine
DX: R41.82 Altered mental status, unspecified (principal); J44.9 Chronic obstructive pulmonary disease, unspecified

== ENCOUNTER 2021-01-09 19:36 | Emergency (ER) | payer MEDICARE ==
[~2021-01-09] VITALS: Ht 180.3 cm; Wt 90.9 kg
[2021-01-09 19:38] VITALS: Ht 180.3 cm; Wt 90.9 kg
[2021-01-09 22:41] VITALS: BP 110/60
== END 2021-01-10 00:40 ==
LOC: D.ER 19:36
DX: S01.81XA Laceration without foreign body of other part of head, initial encounter (principal); J44.9 Chronic obstructive pulmonary disease, unspecified; Z72.0 Tobacco use; W19.XXXA Unspecified fall, initial encounter; Y93.9 Activity, unspecified; Y92.129 Unspecified place in nursing home as the place of occurrence of the external cause; E03.9 Hypothyroidism, unspecified

== ENCOUNTER 2021-02-01 11:26 | Inpatient (IN) | payer MEDICARE ==
[2021-02-01] VITALS (8 sets, daily range): BP systolic 107–146; BP diastolic 66–86; BMI 25.1
[~2021-02-01] VITALS: Ht 180.3 cm; Wt 81.6 kg
--- NOTE | 2021-02-01 11:30 | NUR ---
ARRIVED VIA EMS. ALTERED LOC PER NH. ABLE TO ANSWER SOME QUESTIONS AND OCCASIONALLY FOLLOWS VERBAL COMMANDS.
[2021-02-01] MEDS ORDERED: NORVASC5 MG PO (11:42)
[2021-02-01] MEDS ORDERED: VITAMIN B-121000 MCG PO (11:43)
[2021-02-01] MEDS ORDERED: VITAMIN B-12500 MCG PO (11:43)
[2021-02-01] MEDS ORDERED: DILANTIN100 MG PO (11:44)
[2021-02-01] MEDS ORDERED: FUROSEMIDE20 MG PO (11:45)
[2021-02-01] MEDS ORDERED: MUCINEX600 MG PO (11:46)
[2021-02-01] MEDS ORDERED: GABAPENTIN100 MG PO (11:46)
[2021-02-01] MEDS ORDERED: CHRONULAC30 ML PO (11:47)
[2021-02-01] MEDS ORDERED: LAMICTAL100 MG PO (11:48)
[2021-02-01] MEDS ORDERED: SYNTHROID50 MCG PO (11:49)
[2021-02-01] MEDS ORDERED: MELATONIN 3 MG1 TAB PO (11:49)
[2021-02-01 11:50] LABS: BASOPHILS 0.2 % (0-2); EOSINOPHILS 2.7 % (0-7); HEMATOCRIT 45.9 % (42.0-54.0); HEMOGLOBIN 14.9 g/dL (13.5-17.5); IMMATURE GRANULOCYTES 0.1 % (0-5); LYMPHOCYTE ABS# 4.95 10x3/uL (1.32-3.57); LYMPHOCYTES 46.9 % (15-50); MCH 31.8 pg (26.0-34.0); MCHC 32.5 g/dL (31.0-37.0); MCV 97.9 fL (80.0-100.0); MEAN PLATELET VOLUME 9.7 fL (7.4-10.4); MONOCYTES 7.2 % (2-11); NEUTROPHIL ABS# 4.54 10x3/uL (1.78-5.38); NEUTROPHILS 42.9 % (40-80); RBC 4.69 10x6/uL (4.20-6.10); RDW 13.4 % (11.5-14.5); WBC 10.6 10x3/uL (4.8-10.8)
[2021-02-01 11:51] LABS: PLATELET COUNT 135 10x3/uL (130-400)
[2021-02-01] MEDS ORDERED: MILK OF MAGNESI30 ML PO (11:58)
[2021-02-01] MEDS ORDERED: NAPROSYN500 MG PO (11:59)
[2021-02-01] MEDS ORDERED: MULTI-DAY VITAM1 TAB PO (11:59)
[2021-02-01 12:00] LABS: CALC OSMOLALITY 295 mosm/kg (275-300); CALCIUM 8.8 mg/dL (8.5-10.1); CARBON DIOXIDE 27.3 mmol/L (21.0-32.0); CHLORIDE - SERUM 109 mmol/L (98-107); GLUCOSE 106 mg/dL (74-106); POTASSIUM - SERUM 3.6 mmol/L (3.5-5.1); SODIUM 145 mmol/L (136-145); UREA NITROGEN 31 mg/dL (7-18); eGFR NON AFRICAN AMERICAN 81 mL/min (90-120)
[2021-02-01] MEDS ORDERED: PROTONIX40 MG PO (12:00)
[2021-02-01] MEDS ORDERED: K-DUR20 MEQ PO (12:00)
[2021-02-01] MEDS ORDERED: PRAVASTATIN SOD10 MG PO (12:01)
[2021-02-01] MEDS ORDERED: XIFAXAN200 MG PO (12:02)
[2021-02-01] MEDS ORDERED: ZOLOFT100 MG PO (12:02)
[2021-02-01 12:03] LABS: APTT 25.1 SECONDS (22.8-39.4); INR 1.23 (0.85-1.17); PROTIME 14.3 SECONDS (11.6-15.0)
[2021-02-01] MEDS ORDERED: VITAMIN B-1100 M1 PO (12:03)
[2021-02-01] MEDS ORDERED: VITAMIN D-40010 MCG PO (12:05)
[2021-02-01] MEDS ORDERED: DEPAKOTE250 MG PO (12:06)
[2021-02-01] MEDS ORDERED: VITAMIN E200 UNI1 PO (12:07)
[2021-02-01 12:15] LABS: ALBUMIN 3.9 g/dL (3.4-5.0); ALKALINE PHOSPHATASE 167 U/L (30-120); ALT (SGPT) 20 U/L (10-68); CKMB 0.5 U/L (0.0-3.6); CREATINE KINASE 36 UL (21-232); MAGNESIUM - SERUM 1.9 mg/dL (1.8-2.4); PROTEIN - SERUM 7.3 g/dL (6.4-8.2); THYROID STIMULATING HORMONE 4.14 uIU/mL (0.36-3.74); TROPONIN-I < 0.017 ng/mL (0.000-0.060)
[2021-02-01 13:06] LABS: UDS - AMPHET NEGATIVE QUAL (NEGATIVE); UDS - BARB NEGATIVE QUAL (NEGATIVE); UDS - BENZO NEGATIVE QUAL (NEGATIVE); UDS - COCAINE NEGATIVE QUAL (NEGATIVE); UDS - OPIATE NEGATIVE QUAL (NEGATIVE); UDS - PCP NEGATIVE QUAL (NEGATIVE); UDS - THC NEGATIVE QUAL (NEGATIVE)
[2021-02-01 13:27] LABS: BILIRUBIN NEGATIVE (NEGATIVE); KETONE NEGATIVE (NEGATIVE); NITRITE NEGATIVE (NEGATIVE)
--- NOTE | 2021-02-01 14:18 | NUR ---
PT IS SCOOTING ALL AROUND IN BED, FLINGING HIS LEGS OVER SIDE RAILS AND EVEN ATTEMPTING TO HIT NURSES WITH A DOUBLED UP FIST. SIDE RAILS HAVE BEEN PADDED WITH BLANKETS FOR PTS SAFETY. HOUSE SUPV NOTIFIED.
[2021-02-02] VITALS: BP 144/82
[2021-02-02 04:00] VITALS: BP 141/77
[2021-02-02 07:25] LABS: ALBUMIN 3.9 g/dL (3.4-5.0); ALKALINE PHOSPHATASE 168 U/L (30-120); ALT (SGPT) 23 U/L (10-68); BILIRUBIN - DIRECT 0.08 mg/dL (0.00-0.30); BILIRUBIN - INDIRECT 0.33 mg/dL (0.00-1.00); BILIRUBIN - TOTAL 0.41 mg/dL (0.2-1.3); CALC OSMOLALITY 298 mosm/kg (275-300); CALCIUM 9.3 mg/dL (8.5-10.1); CARBON DIOXIDE 25.5 mmol/L (21.0-32.0); CHLORIDE - SERUM 110 mmol/L (98-107); CREATININE - SERUM 0.8 mg/dL (0.6-1.3); GLUCOSE 88 mg/dL (74-106); POTASSIUM - SERUM 4.1 mmol/L (3.5-5.1); PROTEIN - SERUM 7.3 g/dL (6.4-8.2); SODIUM 148 mmol/L (136-145); UREA NITROGEN 28 mg/dL (7-18); eGFR NON AFRICAN AMERICAN > 90 mL/min (90-120)
--- NOTE | 2021-02-02 07:59 | NUR ---
RESTING COMFORTABLY IN BED WITH EYES CLOSED, NO CURRENT S/S OF DISTRESS AT THIS TIME. IV LOCATED TO LEFT AC CURRENTLY SL. WILL CONT TO MONITOR.
[2021-02-02 10:18] VITALS: BP 119/82
[2021-02-02 10:50] LABS: HEMATOCRIT 43.2 % (42.0-54.0); HEMOGLOBIN 14.3 g/dL (13.5-17.5); LYMPHOCYTE ABS# 5.03 10x3/uL (1.32-3.57); MCH 31.8 pg (26.0-34.0); MCHC 33.1 g/dL (31.0-37.0); MCV 96.2 fL (80.0-100.0); MEAN PLATELET VOLUME 10.1 fL (7.4-10.4); NEUTROPHIL ABS# 3.75 10x3/uL (1.78-5.38); PLATELET COUNT 159 10x3/uL (130-400); RBC 4.49 10x6/uL (4.20-6.10); RDW 13.2 % (11.5-14.5); WBC 9.7 10x3/uL (4.8-10.8)
[2021-02-02 13:05] VITALS: BP 134/89
[2021-02-02 13:55] VITALS: Ht 180.3 cm; Wt 81.6 kg
[2021-02-02 14:14] LABS: EOSINOPHILS 5 % (0-7); LYMPHOCYTES 29 % (15-50); MONOCYTES 15 % (2-11); NEUTROPHILS 49 % (40-80); PLATELET ESTIMATE NORMAL
[2021-02-02 17:31] VITALS: BP 122/80
[2021-02-02 21:01] VITALS: BP 130/84
[2021-02-03 01:18] VITALS: BP 119/74
--- NOTE | 2021-02-03 02:34 | NUR ---
I have reviewed this patient and I concur with the Shift Assessment completed by the Licensed Practical Nurse today this shift.
[2021-02-03 06:21] VITALS: BP 103/62
[2021-02-03 07:33] LABS: ALBUMIN 3.9 g/dL (3.4-5.0); ALKALINE PHOSPHATASE 178 U/L (30-120); BILIRUBIN - TOTAL 0.31 mg/dL (0.2-1.3); CALC OSMOLALITY 301 mosm/kg (275-300); CALCIUM 8.7 mg/dL (8.5-10.1); CARBON DIOXIDE 26.4 mmol/L (21.0-32.0); CHLORIDE - SERUM 110 mmol/L (98-107); GLUCOSE 91 mg/dL (74-106); POTASSIUM - SERUM 3.8 mmol/L (3.5-5.1); PROTEIN - SERUM 7.2 g/dL (6.4-8.2); SODIUM 148 mmol/L (136-145); UREA NITROGEN 35 mg/dL (7-18); eGFR NON AFRICAN AMERICAN 81 mL/min (90-120)
[2021-02-03 07:39] LABS: ALT (SGPT) 31 U/L (10-68)
[2021-02-03 08:05] LABS: HEMATOCRIT 42.3 % (42.0-54.0); HEMOGLOBIN 14.1 g/dL (13.5-17.5); LYMPHOCYTE ABS# 4.87 10x3/uL (1.32-3.57); MCH 32.1 pg (26.0-34.0); MCHC 33.3 g/dL (31.0-37.0); MCV 96.4 fL (80.0-100.0); MEAN PLATELET VOLUME 10.4 fL (7.4-10.4); NEUTROPHIL ABS# 5.65 10x3/uL (1.78-5.38); PLATELET COUNT 145 10x3/uL (130-400); RBC 4.39 10x6/uL (4.20-6.10); RDW 13.4 % (11.5-14.5); WBC 11.7 10x3/uL (4.8-10.8)
[2021-02-03 08:40] LABS: EOSINOPHILS 2 % (0-7); LYMPHOCYTES 33 % (15-50); NEUTROPHILS 65 % (40-80); PLATELET ESTIMATE NORMAL
[2021-02-03 09:11] VITALS: BP 126/80
--- NOTE | 2021-02-03 10:48 | NUR ---
STRAIGHTENED PT UP IN BED UPON ENTERING, SAT UP RIGHT IN BED. SLUGGISH BUT AROUSES TO VOICE. ADMINISTERED MEDICATION CRUSHED IN PUDDING, NO DIFFICULTY. AIDE IN ROOM FEEDING BREAKFAST. NO S/S OF DISTRESS NOTED AT THIS TIME. BED IN LOWEST POSITION, BED RAILS X2, CALL LIGHT WITHIN REACH. WILL CONTINUE POC.
[2021-02-03 13:20] VITALS: BP 119/67
--- NOTE | 2021-02-03 15:52 | NUR ---
SITUATED COMFORTABLY IN BED, ADMINISTERED MEDICATION, NO DIFFICULTIES. NO S/S OF DISTRESS NOTED AT THIS TIME. WILL CONTINUE POC.
--- NOTE | 2021-02-03 17:24 | NUR ---
I have reviewed this patient and I concur with the Shift Assessment completed by the Licensed Practical Nurse today this shift.
[2021-02-03 18:27] VITALS: BP 116/63
[2021-02-03 22:08] VITALS: BP 159/78
[2021-02-04 01:24] VITALS: BP 151/71
--- NOTE | 2021-02-04 03:00 | NUR ---
I have reviewed this patient and I concur with the Shift Assessment completed by the Licensed Practical Nurse today this shift.
[2021-02-04 05:54] VITALS: BP 133/83
[2021-02-04 06:33] LABS: ALBUMIN 3.9 g/dL (3.4-5.0); ANION GAP 16.7 mmol/L (8-16); BILIRUBIN - TOTAL 0.32 mg/dL (0.2-1.3); CALCIUM 8.9 mg/dL (8.5-10.1); CARBON DIOXIDE 23.1 mmol/L (21.0-32.0); POTASSIUM - SERUM 3.8 mmol/L (3.5-5.1); PROTEIN - SERUM 7.6 g/dL (6.4-8.2)
[2021-02-04 06:37] LABS: CREATININE - SERUM 1.3 mg/dL (0.6-1.3)
[2021-02-04 07:07] LABS: BASOPHILS 0.1 % (0-2); EOSINOPHILS 3.1 % (0-7); HEMATOCRIT 44.6 % (42.0-54.0); HEMOGLOBIN 14.5 g/dL (13.5-17.5); IMMATURE GRANULOCYTES 0.2 % (0-5); LYMPHOCYTE ABS# 5.51 10x3/uL (1.32-3.57); LYMPHOCYTES 51.6 % (15-50); MCH 31.7 pg (26.0-34.0); MCHC 32.5 g/dL (31.0-37.0); MCV 97.4 fL (80.0-100.0); MEAN PLATELET VOLUME 10.1 fL (7.4-10.4); MONOCYTES 6.2 % (2-11); NEUTROPHIL ABS# 4.15 10x3/uL (1.78-5.38); NEUTROPHILS 38.8 % (40-80); PLATELET COUNT 143 10x3/uL (130-400); RBC 4.58 10x6/uL (4.20-6.10); RDW 13.5 % (11.5-14.5); WBC 10.7 10x3/uL (4.8-10.8)
--- NOTE | 2021-02-04 09:38 | NUR ---
EYES CLOSED, BREATHING EVEN AND NONLABORED. NO S/S OF DISTRESS NOTED AT THIS TIME. AROUSES TO VOICE AND STIMULI. UNABLE TO STAY AWAKE LONG ENOUGH TO TAKE MEDICATION. WHEN AWAKE, REFUSING TO EAT PUDDING WITH CRUSHED MEDS. LEFT COMFORTABLY IN BED RECLINED. BED IN LOWEST POSITION, BED RAILS X3, CALL GEOVANNI BRITTON. WILL CONTINUE POC.
[2021-02-04 09:42] VITALS: BP 124/82
--- NOTE | 2021-02-04 11:49 | NUR ---
I have reviewed this patient and I concur with the Shift Assessment completed by the Licensed Practical Nurse today this shift.
--- NOTE | 2021-02-04 12:28 | NUR ---
PT AGITATED AND KICKING AT STAFF, THROWING LEGS OVER RAILS,MEDICATED WITH ATIAN PER IV, PT NOW RESTING, EYES CLOSED RESP UNLABORED
[2021-02-04 14:35] VITALS: BP 120/74
--- NOTE | 2021-02-04 16:56 | NUR ---
STARTED IV FLUIDS. WRAPPED IV WITH MESH FOR PROTECTION. SITUATED COMFORTABLY IN BED. NO S/S OF DISTRESS NOTED AT THIS TIME. GROGGY BUT AROUSES TO VOICE AND LIGHT STIMULI. BED IN LOWEST POSITION, BED RAILS X3, CALL LIGHT WITHIN REACH. WILL CONTINUE POC.
[2021-02-04 18:35] VITALS: BP 119/65
[2021-02-04 20:00] VITALS: BP 126/87
--- NOTE | 2021-02-04 22:49 | NUR ---
REMOVED IV TO LEFT AC, IT IS RED AND TENDER, WITH CATHETER TIP INTACT. RE-SITED IV TO LEFT UPPER ARM USING 20 GUAGE CATHETER IN ONE STICK. IV FLUIDS RE-STARTED.
[2021-02-05] VITALS: BP 112/77
[2021-02-05 04:00] VITALS: BP 126/81
--- NOTE | 2021-02-05 04:21 | NUR ---
I have reviewed this patient and I concur with the Shift Assessment completed by the Licensed Practical Nurse today this shift.
--- NOTE | 2021-02-05 07:30 | NUR ---
ROUSES TO VERBAL STIMULATION. CONFUSED EXCEPT TO NAME. LUNGS ARE CLEAR BILATERALLY, NO COUGH NOTED. SKIN IS INTACT WITHOUT REDNESS. IV TO LEFT UPPER ARM IS PATENT WITHOUT REDNESS. NO NEEDS NOTED.
[2021-02-05 08:00] VITALS: BP 116/72
--- NOTE | 2021-02-05 10:20 | CN ---
PATIENT NAME:YUDITH LÓPEZ MEDICAL RECORD: [id number] : 60 LOCATION:[id number] ADMIT DATE: 02/01/21 ACCOUNT: [id number] CONSULTING PHYSICIAN: NITA KOCH MD REFERRING PHYSICIAN: YANI TAN MD DATE OF CONSULTATION: 02/01/2021 IDENTIFYING DATA: The patient is 60 years old and he is admitted to the hospital on a voluntary basis secondary to hepatic encephalopathy. CHIEF COMPLAINT: None. HISTORY OF PRESENT ILLNESS: The patient lives in a local fpc and was brought to the Emergency Room because he had been lethargic, more than usual. The patient is unable to provide any useful information. He does answer some questions, but in a way that is nonsensical and incoherent. Apparently, the fpc reports that he has been pocketing his food and medications and again, they also state he has been lethargic. With regard to his mental status, I did see him in November of this year and he is cognitively impaired as he was previously. In November, he was answering questions in a way that did not make sense and was incongruent. He is doing the same today. ASSESSMENT: 1. Delirium. 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 PLAN: The patient should be maintained on his home medications from the fpc. He is currently taking Seroquel, Zoloft, Depakote, and Lamictal. I am going to stop the Depakote secondary to its adverse impact on the liver. He does have an ammonia of 83 today; however, when the ammonia level is brought down, I am not anticipating a significant improvement in his cognition. TRANSINT:[id number] Voice Confirmation ID: [id number] DOCUMENT ID: [id number] NITA KOCH MD at 1020 CC: [id number] DICTATION DATE: 02/01/211641 DUCO POLISHER: 02/01/21 1817 ADM IN [facility] [place] [id number] [place] [address]
--- NOTE | 2021-02-05 11:00 | NUR ---
ASSISTED WITH BREAKFAST PER STAFF. ATE MOST OF MEAL. TOOK AM MEDS WITHOUT DIFFICULTY. DENIES NEEDS.
--- NOTE | 2021-02-05 19:29 | NUR ---
ATE OVER HALF OF SUPPER WITH ASSIST. DENIES NEEDS. NO CHANGES NOTED.
[2021-02-05 20:00] VITALS: BP 140/81
[2021-02-06 04:00] VITALS: BP 135/81
--- NOTE | 2021-02-06 05:11 | NUR ---
I have reviewed this patient and I concur with the Shift Assessment completed by the Licensed Practical Nurse today this shift.
[2021-02-06 10:12] VITALS: BP 116/72
[2021-02-06 12:29] VITALS: BP 125/59
[2021-02-06 16:59] VITALS: BP 136/71
[2021-02-06 20:00] VITALS: BP 147/76
[2021-02-07] VITALS: BP 96/54
--- NOTE | 2021-02-07 03:13 | NUR ---
I have reviewed this patient and I concur with the Shift Assessment completed by the Licensed Practical Nurse today this shift.
[2021-02-07 04:00] VITALS: BP 136/84
[2021-02-07 08:25] VITALS: BP 125/85
[2021-02-07 11:38] LABS: ALBUMIN 3.5 g/dL (3.4-5.0); ALKALINE PHOSPHATASE 164 U/L (30-120); ALT (SGPT) 30 U/L (10-68); BILIRUBIN - TOTAL 0.23 mg/dL (0.2-1.3); CALC OSMOLALITY 278 mosm/kg (275-300); CALCIUM 8.3 mg/dL (8.5-10.1); CARBON DIOXIDE 27.7 mmol/L (21.0-32.0); CHLORIDE - SERUM 104 mmol/L (98-107); CREATININE - SERUM 0.8 mg/dL (0.6-1.3); GLUCOSE 106 mg/dL (74-106); POTASSIUM - SERUM 3.7 mmol/L (3.5-5.1); PROTEIN - SERUM 6.7 g/dL (6.4-8.2); SODIUM 140 mmol/L (136-145); UREA NITROGEN 12 mg/dL (7-18); eGFR NON AFRICAN AMERICAN > 90 mL/min (90-120)
[2021-02-07 11:43] LABS: HEMATOCRIT 37.8 % (42.0-54.0); HEMOGLOBIN 13.2 g/dL (13.5-17.5); LYMPHOCYTE ABS# 4.75 10x3/uL (1.32-3.57); MCH 32.1 pg (26.0-34.0); MCHC 34.9 g/dL (31.0-37.0); MEAN PLATELET VOLUME 9.9 fL (7.4-10.4); NEUTROPHIL ABS# 3.71 10x3/uL (1.78-5.38); PLATELET COUNT 152 10x3/uL (130-400); RBC 4.11 10x6/uL (4.20-6.10); RDW 12.9 % (11.5-14.5); WBC 9.4 10x3/uL (4.8-10.8)
--- NOTE | 2021-02-07 12:29 | NUR ---
LAB CALL WITH CRITICAL PHENYTOIN OF 42.7
[2021-02-07 12:58] VITALS: BP 119/71
[2021-02-07 14:00] LABS: ANISOCYTOSIS OCC; EOSINOPHILS 7 % (0-7); LYMPHOCYTES 41 % (15-50); MONOCYTES 5 % (2-11); NEUTROPHILS 46 % (40-80); PLATELET ESTIMATE NORMAL; PLATELET MORPHOLOGY PLT CLUMPS PRESENT; ROULEAUX OCC
--- NOTE | 2021-02-07 14:01 | NUR ---
Nutrition follow-up: Pt very confused today; trying to climb out of bed at time of RDN visit. Pt not talking. Diet order: Low sodium PO intake has been ~50-75% of some meals; pt with poor po intake today due to AMS. Labs reviewed WT: 179# Pt not meeting nutritional goals at this time. Recommend: Pt may benefit from an appetite stimulant. RDN will order Ensure with meals. Follow-up: 02/09/21
--- NOTE | 2021-02-07 14:43 | MORECARE ---
CASE MANAGEMENT DISCHARGE SUMMARY PATIENT: YUDITH LÓPEZ UNIT: [id number] ADM DATE: 02/01/21 AGE: 60 : 60 SEX: M ROOM/BED: D.[facility]5 AUTHOR: BOBDOC PHYSICIAN: REFERRING PHYSICIAN: YANI TNA MD DATE OF SERVICE: 02/07/21 Case Management Discharge Planning Summary DCP REVIEW SUMMARY ANTICIPATED D/C DATE: EXPECTED LOS : CASE STATUS: DCP Initiated INITIAL REVIEW: 02/01/2021 INITIAL REVIEWER: Lisa Angulo FINAL DISCHARGE DISPOSITION: : FINAL REVIEWER: FINAL REVIEW DATE: DCP Focus Questions & Answers DCP Screen QUESTION: ANSWER High Risk Factors: : Polypharmacy (greater than 10 meds) DCP Evaluation QUESTION: ANSWER Patient's ability to cope with chronic illness : d. No chronic illness Would patient like to participate in any Care Coordination programs (if applicable): : Not applicable Mental health screen: : No mental health history DCP Re-evaluation QUESTION: ANSWER Would patient like to participate in any Care Coordination programs (if applicable): : Not applicable PATIENT: YUDITH LÓPEZ ENCOUNTER: [id number] MEDICAL RECORD#: [id number] ADMISSION DATE: 02/01/2021 DISCHARGE DATE: ATTENDING MD: YANI RODRIGUEZ : AGE: 60 MARITAL STATUS: S DC PLAN ID: [id number] FACILITY: [facility] PRINTED ON: 02/07/21 14:43 CT All edits/amendments must be made on the electronic document DICTATION DATE: 02/07/211442 RESIDENTIAL ENERGY AUDITOR: ANGELY 02/07/211442 RPT#: [id number] DC DATE: STATUS: ADM IN [facility] [address] [place] [address] END OF REPORT
--- NOTE | 2021-02-07 14:57 | MORECARE ---
CASE MANAGEMENT DISCHARGE SUMMARY PATIENT: YUDITH LÓPEZ UNIT: [id number] ADM DATE: 02/01/21 AGE: 60 : 60 SEX: M ROOM/BED: D.2235 AUTHOR: LIZZ ROJAS PHYSICIAN: REFERRING PHYSICIAN: YANI TAN MD DATE OF SERVICE: 02/07/21 Case Management Discharge Planning Summary COMMENTS ENTERED DATE: 02/07/21 14:44 CT COMMENT TYPE: Discharge Planning REVIEWER: Lisa Angulo PER CHART PATIENT WAS RECEIVED to the ER BY AMBULANCE FROM THE [facility] FOR CHANGE IN MENTATION. RN SHIFT ASSESSMENT STATES TODAY THAT PATIENT IS CONFUSED, RESTLESS AND AGGITATED AT TIMES WITH SLURRED SPEECH. Psychiatry note states he appears to be at his baseline cognitively. Anticipate dc back to the nursing facility soon. DCP REVIEW SUMMARY ANTICIPATED D/C DATE: EXPECTED LOS : CASE STATUS: DCP Initiated INITIAL REVIEW: 02/01/2021 INITIAL REVIEWER: Lisa Angulo FINAL DISCHARGE DISPOSITION: : FINAL REVIEWER: FINAL REVIEW DATE: DCP Focus Questions & Answers DCP Screen QUESTION: ANSWER High Risk Factors: : Polypharmacy (greater than 10 meds) DCP Evaluation QUESTION: ANSWER Patient gives permission to discuss discharge plans with: (name, relationship and number) : PATIET FROM THE [facility]. Patient's ability to cope with chronic illness : d. No chronic illness Living Arrangements: : Retirement Facility Facility / Agency name and contact information from Question 3 (if applicable): : [facility] Would patient like to participate in any Care Coordination programs (if applicable): : Not applicable Mental health screen: : No mental health history DCP Re-evaluation QUESTION: ANSWER Would patient like to participate in any Care Coordination programs (if applicable): : Not applicable PATIENT: YUDITH LÓPEZ ENCOUNTER: [id number] MEDICAL RECORD#: [id number] ADMISSION DATE: 02/01/2021 DISCHARGE DATE: ATTENDING MD: YANI RODRIGUEZ : AGE: 60 MARITAL STATUS: S DC PLAN ID: [id number] FACILITY: [facility] PRINTED ON: 02/07/21 14:56 CT All edits/amendments must be made on the electronic document DICTATION DATE: 02/07/21 8163 WAREHOUSE SUPERVISOR 3RD SHIFT: ANGELY 02/07/21 1456 RPT#: [id number] DC DATE: STATUS: ADM IN [facility] [address] [place] [address] END OF REPORT
--- NOTE | 2021-02-07 15:47 | NUR ---
CALLED REPORT TO SCOTT AT [facility]
[2021-02-07 17:47] VITALS: BP 138/76
--- NOTE | 2021-02-07 21:35 | NUR ---
PT ESCORTED TO ER ENTRANCE VIA BED BY 10sec. BEING TRANSFERRED TO [facility].
--- NOTE | 2021-02-07 21:39 | MORECARE ---
CASE MANAGEMENT DISCHARGE SUMMARY PATIENT: YUDITH LÓPEZ UNIT: [id number] ADM DATE: 02/01/21 AGE: 60 : 60 SEX: M ROOM/BED: D.2235 AUTHOR: LIZZ ROJAS PHYSICIAN: REFERRING PHYSICIAN: YANI TAN MD DATE OF SERVICE: 02/07/21 Case Management Discharge Planning Summary COMMENTS ENTERED DATE: 02/07/21 14:44 CT COMMENT TYPE: Discharge Planning REVIEWER: Lisa Angulo PER CHART PATIENT WAS RECEIVED to the ER BY AMBULANCE FROM THE [facility] FOR CHANGE IN MENTATION. RN SHIFT ASSESSMENT STATES TODAY THAT PATIENT IS CONFUSED, RESTLESS AND AGGITATED AT TIMES WITH SLURRED SPEECH. Psychiatry note states he appears to be at his baseline cognitively. Anticipate dc back to the nursing facility soon. DCP REVIEW SUMMARY ANTICIPATED D/C DATE: EXPECTED LOS : CASE STATUS: DCP Initiated INITIAL REVIEW: 02/01/2021 INITIAL REVIEWER: Lisa nAgulo FINAL DISCHARGE DISPOSITION: : FINAL REVIEWER: FINAL REVIEW DATE: DCP Focus Questions & Answers DCP Screen QUESTION: ANSWER High Risk Factors: : Polypharmacy (greater than 10 meds) DCP Evaluation QUESTION: ANSWER Patient gives permission to discuss discharge plans with: (name, relationship and number) : PATIET FROM THE [facility]. Patient's ability to cope with chronic illness : d. No chronic illness Living Arrangements: : Snf Facility Facility / Agency name and contact information from Question 3 (if applicable): : [facility] Would patient like to participate in any Care Coordination programs (if applicable): : Not applicable Mental health screen: : No mental health history DCP Re-evaluation QUESTION: ANSWER Would patient like to participate in any Care Coordination programs (if applicable): : Not applicable PATIENT: YUDITH LÓPEZ ENCOUNTER: [id number] MEDICAL RECORD#: [id number] ADMISSION DATE: 02/01/2021 DISCHARGE DATE: 02/07/2021 ATTENDING MD: YANI RODRIGUEZ : AGE: 60 MARITAL STATUS: S DC PLAN ID: [id number] FACILITY: [facility] PRINTED ON: 02/07/21 21:39 CT All edits/amendments must be made on the electronic document DICTATION DATE: 02/07/212138 NEWS VIDEO EDITOR: ANGELY 02/07/212138 RPT#: [id number] DC DATE:02/07/21 STATUS: DIS IN [facility] [address] [place] [address] END OF REPORT
--- NOTE | 2021-02-08 15:05 | MORECARE ---
CASE MANAGEMENT DISCHARGE SUMMARY PATIENT: YUDITH LÓPEZ UNIT: [id number] ADM DATE: 02/01/21 AGE: 60 : 60 SEX: M ROOM/BED: D.2235 AUTHOR: LIZZ ROJAS PHYSICIAN: REFERRING PHYSICIAN: YANI TAN MD DATE OF SERVICE: 02/08/21 Case Management Discharge Planning Summary COMMENTS ENTERED DATE: 02/07/21 14:44 CT COMMENT TYPE: Discharge Planning REVIEWER: Lisa Angulo PER CHART PATIENT WAS RECEIVED to the ER BY AMBULANCE FROM THE [facility] FOR CHANGE IN MENTATION. RN SHIFT ASSESSMENT STATES TODAY THAT PATIENT IS CONFUSED, RESTLESS AND AGGITATED AT TIMES WITH SLURRED SPEECH. Psychiatry note states he appears to be at his baseline cognitively. Anticipate dc back to the nursing facility soon. DCP REVIEW SUMMARY ANTICIPATED D/C DATE: EXPECTED LOS : CASE STATUS: DCP Initiated INITIAL REVIEW: 02/01/2021 INITIAL REVIEWER: Lisa Angulo FINAL DISCHARGE DISPOSITION: : FINAL REVIEWER: FINAL REVIEW DATE: DCP Focus Questions & Answers DCP Screen QUESTION: ANSWER High Risk Factors: : Polypharmacy (greater than 10 meds) DCP Evaluation QUESTION: ANSWER Patient gives permission to discuss discharge plans with: (name, relationship and number) : PATIET FROM THE [facility]. Patient's ability to cope with chronic illness : d. No chronic illness Living Arrangements: : Shelter Facility Facility / Agency name and contact information from Question 3 (if applicable): : [facility] Would patient like to participate in any Care Coordination programs (if applicable): : Not applicable Mental health screen: : No mental health history DCP Re-evaluation QUESTION: ANSWER Would patient like to participate in any Care Coordination programs (if applicable): : Not applicable PATIENT: YUDITH LÓPEZ ENCOUNTER: [id number] MEDICAL RECORD#: [id number] ADMISSION DATE: 02/01/2021 DISCHARGE DATE: 02/07/2021 ATTENDING MD: YANI RODRIGUEZ : AGE: 60 MARITAL STATUS: S DC PLAN ID: [id number] FACILITY: [facility] PRINTED ON: 02/08/21 15:05 CT All edits/amendments must be made on the electronic document DICTATION DATE: 02/08/21 1505 CAMPAIGN MANAGER: DM 02/08/21 1505 RPT#: [id number] DC DATE:02/07/21 STATUS: DIS IN [facility] [address] [place] [address] END OF REPORT
== END 2021-02-07 21:37 | DRG 443 ==
LOC: D.ER 11:26 → D.MS 14:07
PROVIDERS: Emergency Medicine; Family Medicine; ADMIT Legal Medicine; ATTEND Legal Medicine
DX: K72.90 Hepatic failure, unspecified without coma (principal); F03.90 Unspecified dementia, unspecified severity, without behavioral disturbance, psychotic disturbance, mood disturbance, and anxiety; J44.9 Chronic obstructive pulmonary disease, unspecified; G40.909 Epilepsy, unspecified, not intractable, without status epilepticus; F80.1 Expressive language disorder; Z87.820 Personal history of traumatic brain injury

== ENCOUNTER 2021-02-17 22:12 | Emergency (ER) | payer MEDICARE ==
[~2021-02-17] VITALS: Ht 180.3 cm; Wt 81.6 kg
[~2021-02-17 22:12] MED LIST changes: +DEPAKOTE250 MG PO; +K-DUR20 MEQ PO; +MULTI-DAY VITAM1 TAB PO; +VITAMIN B-121000 MCG PO; +VITAMIN D-40010 MCG PO; +ZOLOFT100 MG PO
[2021-02-17 22:16] VITALS: Ht 180.3 cm; Wt 81.6 kg
[2021-02-18 01:39] VITALS: BP 122/78
== END 2021-02-18 01:40 | disposition home or self-care (01) ==
LOC: D.ER 22:12
DX: M25.551 Pain in right hip (principal)

== ENCOUNTER 2021-03-05 14:23 | Emergency (ER) | payer MEDICARE ==
[2021-03-05 14:31] VITALS: BP 133/79; Ht 180.3 cm
== END 2021-03-05 17:49 | disposition home or self-care (01) ==
LOC: D.ER 14:23
DX: R47.81 Slurred speech (principal)